=== PATIENT | female | born 1995 | race Caucasian/White ===

== ENCOUNTER 2020-08-14 13:46 | Observation (INO) | payer OTHER, SELFPAY ==
--- NOTE | ~2020-08-14 | US_ITS ---
EXAMINATION: US OB limited DATE: 08/14/2020 14:43 INDICATION: Vaginal bleeding. Estimated gestational age of 17 weeks and 6 days. TECHNIQUE: Real-time ultrasound of the pelvis was performed. COMPARISON: None. FINDINGS: There is a single fetus in transverse lie. The placenta is fundal. heart rate is 150 beats per minute (bpm). The amniotic fluid volume is subjectively normal. IMPRESSION: 1. Single living fetus in transverse lie. Reviewed, dictated and finalized at location A. T SORTER
--- NOTE | 2020-08-14 13:46 | PC.NURSE ---
Alison Jimenez CNM on unit when pt arrived and would like us to take this 17 wk gestation with vaginal spotting.
--- NOTE | 2020-08-14 14:06 | PC.NURSE ---
Sterile speculum exam by Alison Jimenez CNM. Small amount dark brown discharge noted. SVE closed and long.
--- NOTE | 2020-08-14 14:11 | PM.IMHP ---
H&P: HPI History of Present Illness Date/Time: 08/14/20 14:11 Chief complaint: bleeding Narrative: Joyce Jiménez is a 25 year old female, at 17 weeks gestation. Pt presents to LD after having an episode of bleeding at work, heavier than spotting, not flowing like a cycle, no cramping. no complications, Review of Systems Review of Systems: All systems reviewed & are unremarkable except as noted in HPI and below Meds Home Medications and Allergies Allergies Allergy/AdvReac Type Severity Reaction Status Date / Time No Known Allergies Allergy Unverified 05/01/16 13:36 Exam Const: General: cooperative Limitations: no limitations Resp: Effort & Inspection: normal respiratory effort GI: Inspection: normal to inspection : External Female Exam: normal external appearance Speculum Exam - Vagina: abnormal vaginal discharge (small brown discharge noted in vault, no active bleeding, SVE closed, long) Speculum Exam - Cervix: normal appearance of the cervix Bimanual exam- vagina & uterus: normal bimanual exam Skin: General skin exam: normal color Neuro: General: oriented to person Speech: normal speech Gait exam (Neuro): Normal gait present Assessment and Plan Additional Plan 1. 17 weeks gestation 2. vaginal bleeding, not active 3. plan viability ultrasound plan to monitor and await ultrasound results
[2020-08-14 14:14] VITALS: BP 110/58; PULSE 83
[2020-08-14 14:25] VITALS: BP 102/62; PULSE 93; RESP 16; TEMP 36.7; BMI 18.5
--- NOTE | 2020-08-14 14:25 | OBADM ---
This patient, Joyce Jiménez, admitted to the OB room OB Post 115 for observation. Patient/family oriented to hospital policies and general routines including ID bracelet, bed and alarms, visiting hours, pain management, procedures, bathroom and other care routines, personal items, smoking policy, room service/diet, and visiting hours. Patient/Family are encouraged to report perceived risks to care and to ask questions if they do not understand what they are told or what they should do.
--- NOTE | 2020-08-14 14:28 | PC.NURSE ---
To U/S per wheelchair.
--- NOTE | 2020-08-14 15:35 | PC.NURSE ---
Alison Jimenez CNM aware of U/S report and order written for discharge.
== END 2020-08-14 16:34 | disposition home or self-care (01) ==
PROVIDERS: Admitting Provider Obstetrics & Gynecology; PCP Internal Medicine; Visit Provider Obstetrics & Gynecology
DX: O46.92 Antepartum hemorrhage, unspecified, second trimester (principal); Z3A.17 17 weeks gestation of pregnancy
CPT/HCPCS: 76815; G0378; G0379

== ENCOUNTER 2020-09-14 17:19 | Outpatient (CLI) | payer OTHER, SELFPAY ==
--- NOTE | ~2020-09-14 | US_ITS ---
US OB limited DATE: 09/14/2020 17:50 INDICATION: Vaginal spotting today TECHNIQUE: Real-time imaging and Doppler analysis COMPARISON: None FINDINGS: Live marcus intrauterine gestation, fetus in transverse lie the head to maternal r ight. movement is visualized. heart rate of 142 bpm. The placenta is posterior, lower margin 4.8 cm above the internal os. The cervix measures approximate ly 4.5 cm height. No abnormal retroplacental hemorrhage is evident. Normal amount of amniotic fluid by subjective assessment. IMPRESSION: No significant abnormality demonstrated Reviewed, dictated and finalized at Location A. Reviewed, dictated and finalized at location A. NCILIATION ACCOUNTANT
== END 2020-09-14 17:20 | disposition home or self-care (01) ==
LOC: ANHIMG 17:23
PROVIDERS: PCP Internal Medicine; Visit Provider Obstetrics & Gynecology
DX: O26.859 Spotting complicating pregnancy, unspecified trimester (principal); Z3A.00 Weeks of gestation of pregnancy not specified
CPT/HCPCS: 76815

== ENCOUNTER 2020-10-27 11:28 | Outpatient (CLI) | payer OTHER, SELFPAY ==
[2020-10-27 13:05] LABS: Hematocrit 36.3 % (37.0-47.0); Hemoglobin 12.2 g/dL (12.0-15.0)
[2020-10-27 13:19] LABS: Glucose 1 Hour PP 50gm Dose 96 mg/dL
[2020-10-27 13:56] LABS: HIV 1/2 Ab P24 Ag Result Negative (Negative)
[2020-10-28 07:27] LABS: Rapid Plasma Reagin Non-Reactive (NonReactive)
== END 2020-10-27 11:29 | disposition home or self-care (01) ==
PROVIDERS: PCP Internal Medicine; Visit Provider Obstetrics & Gynecology
DX: Z36.89 Encounter for other specified antenatal screening (principal); Z77.011 Contact with and (suspected) exposure to lead; Z3A.00 Weeks of gestation of pregnancy not specified
CPT/HCPCS: 36415; 82947; 85014; 85018; 86592; 86703; G0432

== ENCOUNTER 2021-01-11 06:20 | Inpatient (IN) | payer OTHER, SELFPAY ==
[2021-01-11] VITALS (81 sets, daily range): BP systolic 81–126; BP diastolic 51–90; PULSE 72–114; RESP 16–17; TEMP 36.8–37.6; O2SAT 92–100; BMI 23.4
--- OUTSIDE RECORDS SUMMARY | 2021-01-11 06:27 | XMS_ITS | Encounter Summary ---
:1995 Author Care Team Providers Name Role Phone Dino Cerda MD Primary Care Provider [phone] Reason for Visit None recorded. Assessment and Plan 1. Small for gestational age fet us ? non-stress test Discussion Note: None recorded.Patient educational handouts: No information available. Plan of Care Reminders Provider Appointments Nst 01/14/2021 Nst, , EQ UIP 10:30AM Lab None ? ? recorded. Referral None ? ? recorded. Procedures None ? ? recorded. Surgeries None ? ? recorded. Imaging 12/14/2020 [place] Non-stress Test Medications Name Start Date ? ? ? Medications Administered None recorded. Vitals None recorded. Results Lab Results None recorded. Allergies Code Code System Name Reaction Severity Onset NKDA ? ? ? Problems Name Status Onset Date Source ? Active 09/23/2020 ? Procedures Date Name Performed by ? 11/30/2020 US, Obstetric, Follow-up [place]
--- OUTSIDE RECORDS SUMMARY | 2021-01-11 06:27 | XMS_ITS ---
:1995 Author Care Team Providers Name Role Phone Dino Cerda Primary Care Provider Unavailable Allergies Code Code System Name Reaction Severity Status Onset NKDA ? Medications Name Status Start Date Stop Date ? ? amoxicillin 500 mg capsule Completed ? 01/10 TAKE ONE CAPSULE BY MOUTH 3 TIMES A DAY amoxicillin 875 mg tablet Completed ? 2018 TAKE 1 TABLET BY MOUTH EVERY 12 HOURS doxycycline hyclate 100 mg capsule Completed ? 01/10/2019 TAKE 1 CAPSULE BY MOUTH EVERY DAY doxycycline hyclate 100 mg tablet Completed ? 01/10/2019 TAKE 1 TABLET BY MOUTH DAILY medroxyprogesterone 150 mg/mL Completed 11/19/2017 intramuscular suspension phentermine Completed ? 11/19/2017 QD spironolactone 100 mg tablet Completed ? TAKE 1 TABLET BY MOUTH EVERY DAY WITH MEALS Problems None recorded. Procedures Notes: None reported Results Lab Results Date Name Specimen Result Interpretation Description Value Range Status Address ? 04/12/2020 SARS CoV 2 RNA ? Sars report ? 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
--- OUTSIDE RECORDS SUMMARY | 2021-01-11 06:27 | XMS_ITS | Encounter Summary ---
:1995 Author Care Team Providers Name Role Phone Dino Cerda MD Primary Care Provider [phone] Reason for Visit None recorded. Assessment and Plan 1. Poor growth affecting m anagement ? US, obstetric, biophysical profile + non-stress test ? US, obstetric, follow-up ? US, doppler, umbilic al artery velocimetry Discussion Note: None recorded.Patient educational handouts: No information available. Plan of Care Reminders Provider Appointments Nst Nst, , EQ UIP 01/14/2021 10:30AM Lab None recorded. ? ? Referral None recorded. ? ? Procedures None recorded. ? ? Surgeries None recorded. ? ? Imaging US, Obstetric, Ora cardoso Biophysical Profile + 01/04/2021 Non-stress Test ? US, Obstetric, Ora cardoso Follow-up 01/04/2021 ? US, DopplerLeanna Umbilical Artery 01/04/2021 Velocimetry Medications Name Start Date ? ? ? Medications Administered None recorded. Vitals None recorded. Results
--- OUTSIDE RECORDS SUMMARY | 2021-01-11 06:27 | XMS_ITS ---
:1995 Author Care Team Providers Name Role Phone PEARL MARCANO MD Primary Care Provider [phone] Allergies Code Code System Name Reaction Severity Status Onset NKDA ? Medications Name Status Start Date Stop Date ? ? amoxicillin 500 mg tablet Completed ? 2019 TAKE 1 TABLET BY MOUTH THREE TIMES A DAY UNTIL FINISHED glxfygtwcy-elakqhmtwojdo-ryaitvyz 50 mg-300 mg-40 mg capsule Com pleted ? 09/23/2020 TAKE 1 CAPSULE BY MOUTH EVERY 4 HOURS clindamycin HCl 300 mg capsule Completed ? 0 09/23/2020 TAKE 1 CAPSULE BY MOUTH EVERY 12 HOURS Depo-Provera 150 mg/mL intramuscular syringe Completed 08/201605/15/2017 inject 1 milliliter by intramuscular route every 3 months docusate sodium 100 mg capsule Completed ? 0 12/21/2020 TAKE 1 CAPSULE BY MOUTH TWICE A DAY FOR CONSTIPATION doxycycline hyclate 50 mg capsule Completed 09/23/2018 12/24/2018 take 1 capsule by oral route every 12 hours Diflucan 150 mg tablet Active 12/10/2019 Not avail able take 1 tablet by oral route once Keflex 500 mg capsule Completed 02/05/2019 03/14/2019 take 1 capsule by oral route every 12 hours metronidazole 0.75 % vaginal gel Completed 03/25/2019 12/10/2019 insert 1 applicatorful by vaginal route every day at bedtime Macrobid 100 mg capsule Active 12/10/2019 Not avai lable take 1 capsule by oral route every 12 hours with food Active ? Not available spironolactone (bulk) 100% Completed 09/23/201812/24 powder tramadol 50 mg tablet Comple
--- OUTSIDE RECORDS SUMMARY | 2021-01-11 06:27 | XMS_ITS | Encounter Summary ---
:1995 Author Care Team Providers Name Role Phone Dino Cerda MD Primary Care Provider [phone] Reason for Visit OB visit 36w2d Assessment and Plan 1. Routine care Discussion Note: None recorded.Patient educational handouts: No information available. Plan of Care Reminders Provider Appointments Nst 01/14/2021 Nst, , EQ UIP 10:30AM Lab None ? ? recorded. Referral None ? ? recorded. Procedures None ? ? recorded. Surgeries None ? ? recorded. Imaging None ? ? recorded. Medications Name Start Date ? ? ? Medications Administered None recorded. Vitals Height Weight BMI Blood Pressure 5 ft 6.25 in 144 lbs 23.1 kg/m2 103/70 mm[Hg] Results Lab Results None recorded. Allergies Code Code System Name Reaction Severity Onset NKDA ? ? ? Problems Name Status Onset Date Source ? Active 09/23/2020 ? Procedures Date Name Performed by ? 11/30/2020 US, Obstetric, Follow
--- OUTSIDE RECORDS SUMMARY | 2021-01-11 06:27 | XMS_ITS | Encounter Summary ---
:1995 Author Care Team Providers Name Role Phone Dino Cerda MD Primary Care Provider [phone] Reason for Visit None recorded. Assessment and Plan 1. growth restriction ? non-stress test Discussion Note: None recorded.Patient educational handouts: No information available. Plan of Care Reminders Provider Appointments Nst 01/14/2021 Nst, , EQ UIP 10:30AM Lab None ? ? recorded. Referral None ? ? recorded. Procedures None ? ? recorded. Surgeries None ? ? recorded. Imaging 01/07/2021 [place] Non-stress Test Medications Name Start Date ? ? ? Medications Administered None recorded. Vitals None recorded. Results Lab Results None recorded. Allergies Code Code System Name Reaction Severity Onset NKDA ? ? ? Problems Name Status Onset Date Source ? Active 09/23/2020 ? Procedures Date Name Performed by ? 12/10/2020 Non-stress Test [place]
--- OUTSIDE RECORDS SUMMARY | 2021-01-11 06:27 | XMS_ITS | Encounter Summary ---
:1995 Author Care Team Providers Name Role Phone Dino Cerda MD Primary Care Provider [phone] Reason for Visit None recorded. Assessment and Plan 1. Poor growth affecting m anagement ? US, obstetric, biophysical profile + non-stress test ? US, doppler, umbilic al artery velocimetry Discussion Note: None recorded.Patient educational handouts: No information available. Plan of Care Reminders Provider Appointments Nst Nst, , EQ UIP 01/14/2021 10:30AM Lab None recorded. ? ? Referral None recorded. ? ? Procedures None recorded. ? ? Surgeries None recorded. ? ? Imaging US, Obstetric, Ora cardoso Biophysical Profile + 12/28/2020 Non-stress Test ? US, Doppler, Leanna martinez Umbilical Artery 12/28/2020 Velocimetry Medications Name Start Date ? ? ? Medications Administered None recorded. Vitals None recorded. Results Lab Results None recorded. Allergies Code Code System Name Reaction Severity Onset NKDA
--- OUTSIDE RECORDS SUMMARY | 2021-01-11 06:27 | XMS_ITS | Encounter Summary ---
:1995 Author Care Team Providers Name Role Phone Dino Cerda MD Primary Care Provider [phone] Reason for Visit None recorded. Assessment and Plan 1. growth restriction ? non-stress test Discussion Note: None recorded.Patient educational handouts: No information available. Plan of Care Reminders Provider Appointments Nst 01/14/2021 Nst, , EQ UIP 10:30AM Lab None ? ? recorded. Referral None ? ? recorded. Procedures None ? ? recorded. Surgeries None ? ? recorded. Imaging 12/28/2020 [place] Non-stress Test Medications Name Start Date ? ? ? Medications Administered None recorded. Vitals None recorded. Results Lab Results None recorded. Allergies Code Code System Name Reaction Severity Onset NKDA ? ? ? Problems Name Status Onset Date Source ? Active 09/23/2020 ? Procedures Date Name Performed by ? 11/30/2020 US, Obstetric, Follow-up [place]
--- OUTSIDE RECORDS SUMMARY | 2021-01-11 06:27 | XMS_ITS | Encounter Summary ---
:1995 Author Care Team Providers Name Role Phone Dino Cerda MD Primary Care Provider [phone] Reason for Visit None recorded. Assessment and Plan 1. growth restriction ? non-stress test Discussion Note: None recorded.Patient educational handouts: No information available. Plan of Care Reminders Provider Appointments Nst 01/14/2021 Nst, , EQ UIP 10:30AM Lab None ? ? recorded. Referral None ? ? recorded. Procedures None ? ? recorded. Surgeries None ? ? recorded. Imaging 12/21/2020 [place] Non-stress Test Medications Name Start Date ? ? ? Medications Administered None recorded. Vitals None recorded. Results Lab Results None recorded. Allergies Code Code System Name Reaction Severity Onset NKDA ? ? ? Problems Name Status Onset Date Source ? Active 09/23/2020 ? Procedures Date Name Performed by ? 11/30/2020 US, Obstetric, Follow-up [place]
--- OUTSIDE RECORDS SUMMARY | 2021-01-11 06:27 | XMS_ITS | Encounter Summary ---
:1995 Author Care Team Providers Name Role Phone Dino Cerda MD Primary Care Provider [phone] Reason for Visit None recorded. Assessment and Plan 1. growth restriction ? non-stress test Discussion Note: None recorded.Patient educational handouts: No information available. Plan of Care Reminders Provider Appointments Nst 01/14/2021 Nst, , EQ UIP 10:30AM Lab None ? ? recorded. Referral None ? ? recorded. Procedures None ? ? recorded. Surgeries None ? ? recorded. Imaging 12/24/2020 [place] Non-stress Test Medications Name Start Date ? ? ? Medications Administered None recorded. Vitals None recorded. Results Lab Results None recorded. Allergies Code Code System Name Reaction Severity Onset NKDA ? ? ? Problems Name Status Onset Date Source ? Active 09/23/2020 ? Procedures Date Name Performed by ? 11/30/2020 US, Obstetric, Follow-up [place]
--- OUTSIDE RECORDS SUMMARY | 2021-01-11 06:27 | XMS_ITS | Encounter Summary ---
:1995 Author Care Team Providers Name Role Phone Dino Cerda MD Primary Care Provider [phone] Reason for Visit None recorded. Assessment and Plan 1. growth restriction ? non-stress test Discussion Note: None recorded.Patient educational handouts: No information available. Plan of Care Reminders Provider Appointments Nst 01/14/2021 Nst, , EQ UIP 10:30AM Lab None ? ? recorded. Referral None ? ? recorded. Procedures None ? ? recorded. Surgeries None ? ? recorded. Imaging 12/31/2020 [place] Non-stress Test Medications Name Start Date ? ? ? Medications Administered None recorded. Vitals None recorded. Results Lab Results None recorded. Allergies Code Code System Name Reaction Severity Onset NKDA ? ? ? Problems Name Status Onset Date Source ? Active 09/23/2020 ? Procedures Date Name Performed by ? 11/30/2020 US, Obstetric, Follow-up [place]
--- OUTSIDE RECORDS SUMMARY | 2021-01-11 06:27 | XMS_ITS | Encounter Summary ---
:1995 Author Care Team Providers Name Role Phone Dino Cerda MD Primary Care Provider [phone] Reason for Visit None recorded. Assessment and Plan 1. growth restriction ? non-stress test Discussion Note: None recorded.Patient educational handouts: No information available. Plan of Care Reminders Provider Appointments Nst 01/14/2021 Nst, , EQ UIP 10:30AM Lab None ? ? recorded. Referral None ? ? recorded. Procedures None ? ? recorded. Surgeries None ? ? recorded. Imaging 01/04/2021 [place] Non-stress Test Medications Name Start Date ? ? ? Medications Administered None recorded. Vitals None recorded. Results Lab Results None recorded. Allergies Code Code System Name Reaction Severity Onset NKDA ? ? ? Problems Name Status Onset Date Source ? Active 09/23/2020 ? Procedures Date Name Performed by ? 12/10/2020 Non-stress Test [place]
--- OUTSIDE RECORDS SUMMARY | 2021-01-11 06:27 | XMS_ITS | Encounter Summary ---
:1995 Author Care Team Providers Name Role Phone Dino Cerda MD Primary Care Provider [phone] Reason for Visit OB visit Assessment and Plan Assessment Note Patient is ___weeks . Discu ssed plan. 1. growth restriction ? US, obstetric, follow-up Discussion Note: None recorded.Patient educational handouts: No information available. Plan of Care Reminders Provider Appointments Nst 01/14/2021 Nst, , EQ UIP 10:30AM Lab None ? ? recorded. Referral None ? ? recorded. Procedures None ? ? recorded. Surgeries None ? ? recorded. Imaging US, 12/28/2020 [place] Obstetric, Follow-up Medications Name Start Date ? ? ? Medications Administered None recorded. Vitals Height Weight BMI Blood Pressure 5 ft 6.25 in 146 lbs 23.4 kg/m2 124/71 mm[Hg] Results Lab Results None recorded. Allergies Code Code System Name Reaction Severity Onset NKDA ? ? ? Problems Name Status Onset Date Source ?
--- OUTSIDE RECORDS SUMMARY | 2021-01-11 06:27 | XMS_ITS | Encounter Summary ---
:1995 Author Care Team Providers Name Role Phone Dino Cerda MD Primary Care Provider [phone] Reason for Visit None recorded. Assessment and Plan 1. Small for gestational age fet us ? US, obstetric, biophysical profile + non-stress [...] US, Obstetric, Ora cardoso Biophysical Profile + 12/21/2020 Non-stress Test ? US, Doppler, Leanna martinez Umbilical Artery 12/21/2020 [facility] Medications Name Start Date ? ? ? Medications Administered None recorded. Vitals None recorded. Results Lab Results None recorded. Allergies Code Code System Name Reaction Severity Onset NKDA ?
--- OUTSIDE RECORDS SUMMARY | 2021-01-11 06:27 | XMS_ITS | Encounter Summary ---
:1995 Author Care Team Providers Name Role Phone Dino Cerda MD Primary Care Provider [phone] Reason for Visit OB visit 38w2d Assessment and Plan 1. Routine care Discussion [...] BMI Blood Pressure 5 ft 6.25 in 150 lbs 24 kg/m2 122/77 mm[Hg] Results Lab Results None recorded. Allergies Code Code System Name Reaction Severity Onset NKDA ? ? ? Problems Name Status Onset Date Source ? Active 09/23/2020 ? Procedures Date Name Performed by ? 12/10/2020 Non-stress Test
--- OUTSIDE RECORDS SUMMARY | 2021-01-11 06:28 | XMS_ITS | Encounter Summary ---
:1995 Author Care Team Providers Name Role Phone Dino Cerda MD Primary Care Provider [phone] Reason for Visit None recorded. Assessment and [...] US, Obstetric, Ora cardoso Biophysical Profile + 12/14/2020 Non-stress Test ? US, Doppler, Leanna martinez Umbilical Artery 12/14/2020 [facility] Medications Name Start Date ? ? ? Medications Administered None recorded. Vitals None recorded. Results Lab Results None recorded. Allergies Code Code System Name Reaction Severity Onset NKDA
--- OUTSIDE RECORDS SUMMARY | 2021-01-11 06:28 | XMS_ITS | Encounter Summary ---
:1995 Author Care Team Providers Name Role Phone Dino Cerda MD Primary Care Provider [phone] Reason for Visit OB visit OB [id number] EDC 01/16/2021 LMP 03/14/2020 Assessment and Plan Assessment Note Patient is 28___weeks . Dis cussed plan. Additional precautionary measures were taken to minimize potentia l exposure to the Covid-19 virus during this patient?s visit, including available fritz d speech language pathologist upon arrive, temperature check and being asked a series of screening qu estions. All staff wore face coverings during this encounter, as well as provided priscila tional cleaning and sanitizing of all surfaces, including countertops, pens, c hairs, door handles, light switches, etc, prior to and following the patient?s vis it. 1. Routine care Discussion Note: None recorded.Patient educational handouts: No information available. Plan of Care Reminders Provider Appointments Nst 01/14/2021 [place], [place] UIP 10:30AM Lab None ? ? recorded. Referral None ? ? recorded. Procedures None ? ? recorded. Surgeries None ? ? recorded. Imaging None ? ? recorded. Medications Name Start Date ? ? ? Medications Administered None recorded. Vitals Height Weight BMI Blood Pressure
--- OUTSIDE RECORDS SUMMARY | 2021-01-11 06:28 | XMS_ITS | Encounter Summary ---
:1995 Author Care Team Providers Name Role Phone Dino Cerda MD Primary Care Provider [phone] Reason for Visit None recorded. Assessment and Plan 1. growth restriction ? non-stress test Discussion Note: None recorded.Patient educational handouts: No information available. Plan of Care Reminders Provider Appointments Nst 01/14/2021 Nst, , EQ UIP 10:30AM Lab None ? ? recorded. Referral None ? ? recorded. Procedures None ? ? recorded. Surgeries None ? ? recorded. Imaging 12/10/2020 [place] Non-stress Test Medications Name Start Date ? ? ? Medications Administered None recorded. Vitals None recorded. Results Lab Results None recorded. Allergies Code Code System Name Reaction Severity Onset NKDA ? ? ? Problems Name Status Onset Date Source ? Active 09/23/2020 ? Procedures Date Name Performed by ? 11/30/2020 US, Obstetric, Follow-up [place]
--- OUTSIDE RECORDS SUMMARY | 2021-01-11 06:28 | XMS_ITS | Encounter Summary ---
:1995 Author Care Team Providers Name Role Phone Dino Cerda MD Primary Care Provider [phone] Reason for Visit OB visit OB [id number] EDC 01/16/2021 LMP 03/14/2020 Assessment and Plan Assessment Note Patient is _34__weeks . Dis cussed plan. 1. Routine care Discussion Note: None recorded.Patient [...] BMI Blood Pressure 5 ft 6.25 in 142 lbs 22.7 kg/m2 110/73 mm[Hg] Results Lab Results None recorded. Allergies Code Code System Name Reaction Severity Onset NKDA ? ? ? Problems Name Status Onset Date Source ? Active 09/23/2020 ? Procedures
--- OUTSIDE RECORDS SUMMARY | 2021-01-11 06:28 | XMS_ITS | Encounter Summary ---
:1995 Author Care Team Providers Name Role Phone Dino Cerda MD Primary Care Provider [phone] Reason for Visit OB visit OB [id number] EDC 01/16/2021 LMP 03/14/2020 Assessment and Plan Assessment Note Patient is _26__weeks . Dis cussed plan. 1. Routine care [...] BMI Blood Pressure 5 ft 6.25 in 132 lbs 21.1 kg/m2 105/70 mm[Hg] Results Lab Results None recorded. Allergies Code Code System Name Reaction Severity Onset NKDA ? ? ? Problems Name Status Onset Date Source ? Active 09/23/2020 ? Procedures
--- OUTSIDE RECORDS SUMMARY | 2021-01-11 06:28 | XMS_ITS | Encounter Summary ---
:1995 Author Care Team Providers Name Role Phone Dino Cerda MD Primary Care Provider [phone] Reason for Visit OB visit OB [id number] EDC 01/16/2021 LMP 03/14/2020 Assessment and Plan Assessment Note Patient is __30_weeks . Dis cussed plan. Additional precautionary measures were taken to minimize potentia l exposure to the Covid-19 virus during this patient?s visit, including available fritz d hvac/r service technician upon arrive, temperature check and being asked [...]
--- OUTSIDE RECORDS SUMMARY | 2021-01-11 06:28 | XMS_ITS | Encounter Summary ---
:1995 Author Care Team Providers Name Role Phone Dino Cerda MD Primary Care Provider [phone] Reason for Visit None recorded. Assessment and Plan 1. Small for gestational age fet us ? US, obstetric, follow-up ? US, obstetric, biophysical profile + non-stress test ? US, doppler, umbilic al artery velocimetry Discussion Note: None recorded.Patient educational handouts: No information available. Plan of Care Reminders Provider Appointments Nst Nst, , EQ UIP 01/14/2021 10:30AM Lab None recorded. ? ? Referral None recorded. ? ? Procedures None recorded. ? ? Surgeries None recorded. ? ? Imaging US, Obstetric, Ora cardoso Follow-up 11/30/2020 ? US, Obstetric, Ora cardoso Biophysical Profile + 11/30/2020 Non-stress Test ? US, DopplerLeanna Umbilical Artery 11/30/2020 [place] Medications Name Start Date ? ? ? Medications Administered None recorded. Vitals None recorded. Results
--- OUTSIDE RECORDS SUMMARY | 2021-01-11 06:28 | XMS_ITS | Encounter Summary ---
:1995 Author Care Team Providers Name Role Phone Dino Cerda MD Primary Care Provider [phone] Reason for Visit OB visit Assessment and Plan Assessment Note Patient is ___weeks . Discu ssed plan. 1. Routine care Discussion Note: None [...] BMI Blood Pressure 5 ft 6.25 in 139 lbs 22.3 kg/m2 98/65 mm[Hg] Results Lab Results None recorded. Allergies Code Code System Name Reaction Severity Onset NKDA ? ? ? Problems Name Status Onset Date Source ? Active 09/23/2020 ? Procedures Date Name Performed by ?
--- OUTSIDE RECORDS SUMMARY | 2021-01-11 06:28 | XMS_ITS | Encounter Summary ---
:1995 Author Care Team Providers Name Role Phone Dino Cerda MD Primary Care Provider [phone] Reason for Visit None recorded. Assessment and Plan 1. growth restriction ? non-stress test Discussion Note: None recorded.Patient educational handouts: No information available. Plan of Care Reminders Provider Appointments Nst 01/14/2021 Nst, , EQ UIP 10:30AM Lab None ? ? recorded. Referral None ? ? recorded. Procedures None ? ? recorded. Surgeries None ? ? recorded. Imaging 11/30/2020 [place] Non-stress Test Medications Name Start Date ? ? ? Medications Administered None recorded. Vitals None recorded. Results Lab Results None recorded. Allergies Code Code System Name Reaction Severity Onset NKDA ? ? ? Problems Name Status Onset Date Source ? Active 09/23/2020 ? Procedures Date Name Performed by ? 11/11/2020 US, Obstetric Anjum Farias
--- OUTSIDE RECORDS SUMMARY | 2021-01-11 06:28 | XMS_ITS | Encounter Summary ---
:1995 Author Care Team Providers Name Role Phone Dino Cerda MD Primary Care Provider [phone] Reason for Visit OB visit 35w2d Assessment and Plan 1. Routine care Discussion [...] BMI Blood Pressure 5 ft 6.25 in 141 lbs 22.6 kg/m2 103/69 mm[Hg] Results Lab Results None recorded. Allergies Code Code System Name Reaction Severity Onset NKDA ? ? ? Problems Name Status Onset Date Source ? Active 09/23/2020 ? Procedures Date Name Performed by ? 11/30/2020 US, Obstetric, Jodi
[2021-01-11 07:01] LABS: Basophils Percent Auto 0.2 % (0.2-1.2); Eosinophils Absolute Auto 0.2 K/mm3 (0-0.3); Eosinophils Percent Auto 1.8 % (0-4.4); Hematocrit 32.7 % (37.0-47.0); Hemoglobin 11.3 g/dL (12.0-15.0); Immature Granulocyte Absolute 0.27 K/mm3 (0.00-0.031); Immature Granulocyte Percent A 2.1 % (0-0.5); Lymphocytes Absolute Auto 1.67 K/mm3 (0.9-3.2); Lymphocytes Percent Auto 13.2 % (18.3-44.2); Mean Corpuscular HGB Conc 34.6 g/dl (32-36); Mean Corpuscular Hemoglobin 31.4 pg (26-34); Mean Corpuscular Volume 90.8 fl (80-100); Mean Platelet Volume 11.8 fl (7.4-10.4); Monocytes Absolute Auto 1.1 K/mm3 (0.1-0.6); Neutrophils Absolute Auto 9.3 K/mm3 (1.3-6.7); Neutrophils Percent Auto 73.7 % (45.5-73.1); Platelet Count Result 201 k/mm3 (150-375); Red Cell Distribution Width 13.9 % (11.5-14.5); White Blood Count 12.6 K/mm3 (4.5-10.0)
[2021-01-11] MEDS: LACTATED RINGERS 1,000 ML 125 ML IV CONT ×3 (07:10→11:02)
[2021-01-11] MEDS: OXYTOCIN 30 UNITS/NS 500 ML 30 UNITS/500 ML BAG IV CONT (07:10)
--- NOTE | 2021-01-11 07:17 | WPDOBADMIT ---
Obstetrics - Admit Note Admission Note: record reviewed. No pertinent additions to the history and/or any subsequent changes in the physical findings that are not consistent with the expected course of the were found. MIL, oligohydramnios, IUGR, bilateral pyelectasis Additions to the history and/or subsequent changes in the physical findings follow. None.
--- NOTE | 2021-01-11 07:18 | LDADM ---
This patient, Joyce Jiménez, was admitted to Labor/Delivery/Recovery 104 on 01/11/21 at 06:20. Plans for labor, pain management and were discussed with patient. Patient/family oriented to hospital policies and general routines including ID bracelet, bed and alarms, visiting hours, pain management, procedures, bathroom and other care routines, personal items, smoking policy, room service/diet and guest tray routines, infant security routines, and visiting hours. Patient/Family are encouraged to report perceived risks to care and to ask questions if they do not understand what they are told or what they should do. See OBIX for further documentation.
[2021-01-11] MEDS: AMPICILLIN 2 GM/NS 100 ML 2 GM/100 ML BAG IVPB (07:47)
--- NOTE | 2021-01-11 09:38 | P.PNAN_ITS ---
Anes - Eval Pre Procedure Procedure: labor epidural Date/Time: 01/11/21 09:38 Surgeon: Jarrett Preop Diagnosis: pain during labor Pre Op Diagnosis: Induction of labor Patient Data Age: 26 Gender: F Height: 5 ft 7.5 in Weight: 69 kg Last Vital Signs Temp 36.9 C 01/11/21 07:15 Pulse 88 01/11/21 09:37 BP 111/68 01/11/21 09:37 Pulse Ox 100 01/11/21 09:35 Allergies Allergy/AdvReac Type Severity Reaction Status Date / Time No Known Allergies Allergy Verified 12/22/20 13:30 Home Medications Medication Instructions Recorded Confirmed Type PNV cmb#95-ferrous fumarate-FA 1 tablet PO DAILY 08/14/20 12/22/20 History [] Laboratory Tests 01/11/21 01/11/21 01/11/21 06:55 06:55 06:55 WBC 12.6 K/mm3 H K/mm3 (4.5-10.0) RBC 3.60 M/mm3 L M/mm3 (4.2-5.4) Hgb 11.3 g/dL L g/dL (12.0-15.0) Hct 32.7 % L % (37.0-47.0) MCV 90.8 fl fl (80-100) MCH 31.4 pg pg (26-34) MCHC 34.6 g/dl g/dl (32-36) RDW 13.9 % % (11.5-14.5) Plt Count 201 k/mm3 k/mm3 (150-375) MPV 11.8 fl H fl (7.4-10.4) Immature Gran % (Auto) 2.1 % H % (0-0.5) Neut % (Auto) 73.7 % H % (45.5-73.1) Lymph % (Auto) 13.2 % L % (18.3-44.2) [place] % (Auto) 9.0 % H % (2.6-8.5) Eos % (Auto) 1.8 % % (0-4.4) Baso % (Auto) 0.2 % % (0.2-1.2) Lymph # (Auto) 1.67 K/mm3 K/mm3 (0.9-3.2) [place] # (Auto) 1.1 K/mm3 H K/mm3 (0.1-0.6) Eos # (Auto) 0.2 K/mm3 K/mm3 (0-0.3) Baso # (Auto) 0.0 K/mm3 K/mm3 (0.0-0.1) Abs Immat Gran (auto) 0.27 K/mm3 H K/mm3 (0.00-0.031) Absolute Neuts (auto) 9.3 K/mm3 H K/mm3 (1.3-6.7) Absolute Nucleated RBC 0.0 K/mm3 K/mm3 (0.0-0.012) Nucleated RBC % 0.0 % % (0.0-0.2) RPR Pending Blood Type O Positive Antibody Screen Negative : gestational age (DINORA 01/16/2021) Patient hx anesthesia problems: none Family hx anesthesia problems: none [facility] Family History Family History Father Acute myocardial infarction Heart disease Hypertension Social History Social History Smoking status: Never smoker Substance use: never Spiritual care concerns: No Exam Day of Procedure 01/11/21 09:38 Patient weight: normal Heart: regular rate and rhythm Lungs: clear to auscultation and normal air movement Neurological: alert and oriented
[2021-01-11 10:35] LABS: Rapid Plasma Reagin Non-Reactive (NonReactive)
[2021-01-11] MEDS: AMPICILLIN 1 GM/NS 50 ML 1 GM/50 ML BAG IVPB (11:51)
--- NOTE | 2021-01-11 13:39 | P.PCNOB_ITS ---
OB - Delivery Note Procedure Delivery date: 01/11/21 Procedure: vaginal delivery events: Oligohydramnios Intrapartal events: None Induction method: AROM and per pitocin protocol Delivery monitor: external FHT and external uterine Route of delivery: Laceration Description: None Specimen: Yes Quantitative Blood Loss (ml): 67 Anesthesia type: Epidural Disposition: other [place] Baby Date of : 01/11/21 Time of : 13:29 Weeks of gestation at delivery: 39 gender: Male Weight (pounds): 6 Weight (ounces): 14 presentation: vertex position: Left Occiput Anterior Placenta delivery description: Spontaneous cord vessel description: 3 Vessels, Clamped/Cut and Delayed Cord Clamping score one minute: 8 score five minutes: 9 Narrative: mother and baby skin to skin and in stable condition
[2021-01-11] MEDS: OXYTOCIN 30 UNITS/NS 500 ML 30 UNITS/500 ML BAG 125 UNITS IV CONT (14:08)
--- NOTE | 2021-01-11 18:58 | OBPPTRN ---
[id number] Patient transferred to post room #282 via W/C. Support person present. Oriented to unit, room, information board, rooming in, admission packet and security measures. Patient verbalizes understanding.
[2021-01-11] MEDS: IBUPROFEN 600 MG TABLET PO (20:09)
[2021-01-12 00:05] VITALS: BP 111/66; PULSE 97; RESP 17; TEMP 36.7; O2SAT 97
[2021-01-12 05:00] VITALS: BP 102/66; PULSE 80; RESP 14; TEMP 36.7; O2SAT 98
[2021-01-12] MEDS: IBUPROFEN 600 MG TABLET PO ×2 (05:10→16:05)
[2021-01-12 06:01] LABS: Hematocrit 30.9 % (37.0-47.0); Hemoglobin 10.4 g/dL (12.0-15.0)
--- NOTE | 2021-01-12 07:23 | PM.OBPNVD ---
OB - PN: Subj Subjective Date/time seen: 01/12/21 07:23 Patient comments: no complaints baby status: doing well OB - PN: Obj Data Labs CBC & Chem 7: 01/12/21 05:05 Labs: Laboratory Results - last 24 hr 01/11/21 01/11/21 01/12/21 06:55 06:55 05:05 Hgb 10.4 L Hct 30.9 L RPR Non-reactive Blood Type O Positive Antibody Screen Negative OB - PN A/P Plan day: 1 Plan: routine care Time Spent With Patient Time: Total time spent is greater than 50% in coordination of care (as documented) at patient's floor/unit and/or counseling patient: Review of Systems Review of Systems: All systems reviewed & are unremarkable except as noted in HPI and below Exam Const: General: cooperative Orientation/consciousness: patient oriented x3 Psych: Affect: normal affect Attitude: cooperative Thought process: Normal thought process present Thought content: Yes Normal thought content present Insight: Good insight present (Psych)
[2021-01-12 08:00] VITALS: BP 100/64; PULSE 91; RESP 14; TEMP 36.3; O2SAT 98
--- NOTE | 2021-01-12 09:16 | WPDANLDPN2 ---
Anes-Prog Note L&D Date/Time: 01/12/21 09:16 Comfortable throughout: labor and delivery Neuraxial method: epidural Epidural/Spinal procedure site: clean & non-tender Neuro status: Neuro function grossly intact. Cardiovascular status: normal Respiratory status: normal Airway patency: baseline Mental status: baseline Post-Op hydration status: normal Vital Signs: Last Vital Signs Temp 36.7 C 01/12/21 05:00 Pulse 80 01/12/21 05:00 Resp 14 01/12/21 05:00 BP 102/66 01/12/21 05:00 Pulse Ox 98 01/12/21 05:00 Pain score (VAS): 0 I/O: Intake & Output 01/11/21 01/12/21 01/12/21 23:59 07:59 15:59 Intake Total 600 Output Total 75 Balance 525 Post-procedural complaints: none Patient feedback: Patient satisfied with anesthetic care.
[2021-01-12] MEDS: MULTIVIT/MIN/PREN/FOL AC/IRON TABLET 1 TAB PO (10:57)
[2021-01-12 12:00] VITALS: BP 100/64; PULSE 77; RESP 14; TEMP 36.4; O2SAT 100
--- NOTE | 2021-01-12 14:54 | PC.NURSE ---
0956 Mother called out for assist with . Mother reports both nipples are very sore, she has been attempting infant to breast each feeding, will latch with a shallow latch causing discomfort with feeding. Mother will then supplement and pump. Mother reports pain with pumping. both nipples are reddened and excoriated. Mother is using shells while not feeding. Reviewed feeding cues, frequencies, duration of feedings, feeding elimination flow sheet, and signs of adequate intake. Demonstrated stimulation techniques to wake infant for feeding. Assisted with infant to breast. Reviewed positioning/alignment in cross cradle, holding breast in U hold and guided asymmetrical latch on. was sleepy and made a few weak attempts to latch in 15 minute attempt. Infant does not thrust tongue forward, tongue does not appear to be tight. Infant does not open wide and keeps bottom lip rolled in and is tight to jaw. A few shallow latches during attempt, infant would have a burst os suckling and pull away. Great difficulties with re-latching. bottle fed and mother pumped after feeding attempt.
--- NOTE | 2021-01-12 15:17 | PC.NURSE ---
1000 Reviewed breast pump care and usage, pumping schedule, nipple care, and collection and storage of breast milk. Mother chooses to use her Medela pump from home. Encouraged [id number], breast massage and manual expression to stimulate supply. Assessed patient for correct flange size 27 mm given, placement and draw. Patient verbalizes and demonstrates understanding of instructions.
--- NOTE | 2021-01-12 15:22 | PC.NURSE ---
[id number] Mother called out for assist with . Infant sleepy and not showing feeding cues. Demonstrated stimulation techniques to wake infant for feeding. Several minutes to waken infant. Feeding cues noted. Assisted with infant to breast. Reviewed positioning/alignment in cross cradle, holding breast in U hold and guided asymmetrical latch on. Once to breast falling asleep. was sleepy and made a few weak attempts to latch in 10 minute attempt. pulls head to right, suggested to attempt in football position. Reviewed positioning/alignment in football, holding breast in C hold and guided asymmetrical latch on. Infant was able to latch correctly. nursed eagerly, with steady draws and occasional swallowing noted for a burst of 2-3 minutes. began to slow and stopped with suckling, and releasing latch. Several attempts made to wake and return to breast. Infant made a few weak attempts. supplemented after. Suggested mother continue to attempt to breast each feeding, watching for nipple tenderness/discomfort.
[2021-01-12] MEDS: ACETAMINOPHEN 325 MG TABLET 650 MG PO (19:22)
[2021-01-12 20:50] VITALS: BP 105/74; PULSE 79; RESP 15; TEMP 36.6; O2SAT 98
[2021-01-13] MEDS: IBUPROFEN 600 MG TABLET PO (05:02)
[2021-01-13 07:55] VITALS: BP 111/73; PULSE 80; RESP 18; TEMP 36.8; O2SAT 100
--- NOTE | 2021-01-13 08:04 | PM.OBPNVD ---
OB - PN: Subj Subjective Date/time seen: 01/13/21 08:04 Patient comments: no complaints baby status: doing well OB - PN: Obj Data Labs CBC & Chem 7: 01/12/21 05:05 OB - PN A/P Plan day: 2 Plan: routine care and discharge home (F/U in 4 weeks) Time Spent With Patient Time: Total time spent is greater than 50% in coordination of care (as documented) at patient's floor/unit and/or counseling patient: Time with patient: less than 15 minutes Review of Systems Review of Systems: All systems reviewed & are unremarkable except as noted in HPI and below Exam Narrative: Exam Narrative: Fundus firm and vaginal flow controlled. No lower ext redness, warmth, or edema. Negative homans. Const: General: comfortable Chest: Breast/axilla inspection: normal inspection of the breasts Resp: Effort & Inspection: normal respiratory effort Cardio: Rate: regular rate GI: GI Palp: Yes Soft to palpation Psych: Appearance: grossly normal Affect: normal affect Attitude: cooperative Thought content: Yes Normal thought content present Judgement: Good judgement present (Psych)
--- NOTE | 2021-01-13 08:06 | P.DS_ITS ---
DS: Admitting Diagnosis Admitting Diagnosis Admitting Diagnosis: Labor OB - DS: Summary OB Procedures : None OB Procedures Intrapartum: Spontaneous Vag Delivery OB Procedures: : None Time Spent with Patient Time attestation: Total time spent providing and/or coordinating discharge services: DS: Data Data Completed and Pending Pending studies at discharge: Pending at discharge 01/11/21 13:33 Surgical [PTH] Routine Discharge Plan Discharge Attending physician on discharge: Elen Jimenez Discharging Clinician: Ai Diop Patient Disposition: Home, Self-Care Activity: pelvic rest Diet: as tolerated Patient Instructions: Antibiotic Form Stand Alone Forms: General Discharge Information Follow-up/Referrals: Elen Jimenez, JUAN PABLOM [Certified Nurse Manager Assurance] - Discharge Medications: Continued PNV cmb#95-ferrous fumarate-FA [] 28 mg iron- 800 mcg Tablet 1 tablet PO DAILY RF: 0 Date of admission: 01/11/21 06:20 Primary Care Provider: Zaida,Dino Kim Admitting Provider: Sofia Farias Attending physician on admission: Sofia Farias Condition: Stable
--- NOTE | 2021-01-13 08:06 | PM.OBPNVD ---
OB - PN: Subj Subjective Date/time seen: 01/13/21 08:06 History of pp depression. Completely denies any symptoms this time. Precautions given. OB - PN: Obj Data Labs CBC & Chem 7: 01/12/21 05:05 OB - PN A/P Time Spent With Patient Time: Total time spent is greater than 50% in coordination of care (as documented) at patient's floor/unit and/or counseling patient:
[2021-01-13 09:30] VITALS: PULSE 80; RESP 18; O2SAT 100
[2021-01-13] MEDS: DOCUSATE SODIUM 100 MG CAPSULE PO (10:13)
[2021-01-13] MEDS: MULTIVIT/MIN/PREN/FOL AC/IRON TABLET 1 TAB PO (10:13)
[2021-01-13] MEDS: ACETAMINOPHEN 325 MG TABLET 650 MG PO (10:13)
--- NOTE | 2021-01-13 12:48 | PC.NURSE ---
0930 Mother is able to independently latch with appropriate positioning/alignment. She continues to report nipple discomfort with feedings. Mother will attempt for 5-10 minutes then supplement and pump, offering EBM/formula of 25mls each feeding. She is feeding as required and waking to feed if needed. Mother is pumping without difficulties or discomfort using her own pump after each feeding attempt. Discussed to increase supplementation of EBM/formula as desires to satisfaction, for low output or not effectively feeding. Reviewed signs when infant may be ready to decrease or discontinue supplementation. Advised not to discontinue supplement until infant is effectively feeding and a feeding is observed by ICP, follow up RN or LC. Infant is feeding as required with adequate feedings in the past 24 hours, and is currently meeting outcomes for weight, output, jaundice and feeding frequencies. Mother states she feels confident to continue current feeding plan at home. Reviewed transition to breast milk, signs of adequate intake, and engorgement/relief. Instructed to call ICP if intake/output less than required. Reviewed regular medications mother is taking. Information provided per Milena. Reviewed community resources on the [facility] website and in the Mom/Baby guide. Information on outpatient services provided. Mother has no further questions at this time.
[2021-01-14 09:50] VITALS: BP 108/71; PULSE 92; RESP 20; TEMP 37.1; O2SAT 98
== END 2021-01-13 12:55 | disposition home or self-care (01) | DRG 806 ==
LOC: ANHLDR 06:31 → ANHOB2 16:33
PROVIDERS: Advanced Practice Midwife; Admitting Provider Obstetrics & Gynecology; PCP Internal Medicine; Visit Provider Obstetrics & Gynecology
DX: O42.02 Full-term premature rupture of membranes, onset of labor within 24 hours of rupture (principal); O99.354 Diseases of the nervous system complicating childbirth; Z37.0 Single live birth; Z3A.39 39 weeks gestation of pregnancy; O36.5930 Maternal care for other known or suspected poor fetal growth, third trimester, not applicable or unspecified; G43.909 Migraine, unspecified, not intractable, without status migrainosus
CPT/HCPCS: 36415; 85014; 85018; 85025; 86592; 86850; 86900; 86901; 88307; A9270; J0290; J2590; J2795; J7120

== ENCOUNTER 2024-11-08 21:12 | Emergency (ER) | payer SELFPAY ==
--- NOTE | ~2024-11-08 | XR_ITS ---
EXAMINATION: XR chest 2V DATE: 11/09/2024 00:45 INDICATION: Shortness of breath. Upper respiratory infection. TECHNIQUE: Frontal and lateral views of the chest were obtained. COMPARISON: None. FINDINGS: There is no pneumonia, pleural effusion, or pneumothorax. The heart size is normal. IMPRESSION: 1. No acute cardiopulmonary disease. Reviewed, dictated and finalized at location A. RRAL CLERK
--- OUTSIDE RECORDS SUMMARY | 2024-11-08 21:13 | XMS_ITS | Clinical Summary ---
Author Organization [facility] [place] Address [address] [place] [address] Care Team Providers Care Welfare Manager Name Role Phone Dino Cerda MD Primary Care Provider [phone] Source Comments [facility],non-owned Affiliates and Associated Physician Practices is amultiple site organization consisting of ambulatory clinics and hospital sitesin [place], [place], [place] and [place]. This disclosure is being madepursuant to the Care Everywhere program and may not contain all information available regarding this patient. Last updated 18.[facility] Allergies No known active allergies Medications * Be aware that medications may not be up to date on this document. Alwaysverify current medications with the patient. Medication Sig Dispensed Refills Start Date End Date Status Vit-DSS-Fe Fum-FA ( VITAMIN WITH IRON) tabletIndications:Pre gnancy Take 1 tablet by mouth once daily Reasons: Active Active Problems Problem Noted Date Diagnosed Date Migraines Vaginal cyst Resolved Problems Problem Noted Date Diagnosed Date Resolved Date Depression screen - initial 10/14/20 10/14/2020 01/11/2021 Overview (10/14/2020): 10/14/2020 Joyce Jiménez was screened for depression using the [place] Depression Scale (EPDS) at her [facility] initial evaluation on 10/14/2020. Her initial score at baseline was 2. Based off of her score of 2, Joyce does not warrant follow up. Patient will continue to be screened throughout , at intervals no closer than two weeks, for continued surveillance and early identification of depression until delivery. Patient reports mental health history. Diagnoses include depression. abnormality in pregnan cy - Amniotic Band 10/07/2020 01/11/2021 Overview (01/13/2021): Images from the original note were not included. [facility] PATIENT--PLEASE CALL [phone] (ex 2) IF TRIAGED OR ADMITTED Care Provider: Dr. Farias [facility] consultants involved: [facility] [place]- Dr. Pascual Diagnosis: Amniotic Band (10/14 US: The band appears to attach to the cord but does not encircle th cord, nor does the cord appear to project through this band. The cord moves freely in this area as well) Planned surveillance: Initial [facility] 10/14/20. Follow-up at [facility] 10/27/20. Continue routine care with primary OB Released from [facility] 10/14/20 Delivery location: with primary OB at hospital of choice (planning [facility]) Delivery mode: Per usual OB indications Desired Delivery GA: No idication for delivery before 39 weeks at this time follow up: Normal care Disability Counselor: Dr. 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 Care plan based on evaluation and is subject to change based on assessment. See Images or Cardiac under Chart Review for US/ ECHO/ MRI reports. Assessment & Plan (10/27/2020 4:19 PM ASSEMBLY LEAD PERSON): growth has reduced since last assessment, EFW: 10%. AC: 10%. umbilical doppler indices appropriate today. S/p visit with [facility]. Plan 1. Serial growth with umbilical Doppler, repeat again in two weeks given identified growth change today. testing if indicated at that time. 2. Risk of growth restriction, umbilical cord accident and . 3. Instructed on twice daily kick counts, seek prompt obstetrical evaluation with decreased movement. 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 growth and umbilical Doppler indices appropriate today. Currently in liliya-viable gestational window. Plan 1. Referral to [facility] [place] 1. Consideration for resection 2. Serial growth with umbilical Doppler Vaginal bleeding during 10/01/2020 01/11/2021 Overview (10/04/2020): Vaginitis panel: lactobacillus iners detected, treated with clindamycin per record. Blood type: O positive. Assessment & Plan (10/27/2020 3:41 PM ASSEMBLY LEAD PERSON): Cervical length screening completed and reassuring. Reports history of easy bruising. Last episode of spotting two weeks ago. RH positive. Complaints today of intermittent watery discharge, separate from her normal vaginal discharge. Reports occasional, non-patterned cramping. Plan 1. Labs previously requested: CBC, PT, PTT, INR, Fibrinogen, TSH with reflex fT4. Patient reports she went to [facility] and did not have orders, nursing confirmed orders are in [facility]. 2. Sent to L/D at [facility] for evaluation for rupture of membranes. Primary [employer]'s office alerted of patient's symptoms. 3. Reviewed SROM warnings and physiologic discharge of , discussed importance of obstetrical evaluation with symptoms of leakage of fluid. 4. labor warnings reviewed, at risk for PTD and PPROM. Assessment & Plan (10/07/2020 11:41 PM ASSEMBLY LEAD PERSON): Seems to be benefiting from work limitations. Cervical length screening reassuring. Small placental sonolucencies. Reports history of easy bruising. Plan 1. Labs requested: CBC, PT, PTT, INR, Fibrinogen, TSH with reflex fT4 2. Gave new work restriction letter requesting lifting no more than 15 pounds & to continue to take breaks after 4 hours of standing Second 10/01/2020 01/11/2021 Overview (10/04/2020): Dating: LMP not c/w 8w5d us, making DINORA-->01/16/21 Summary from 07/08/20: O+ / Negative antibody screen/ Immune/Rpr-NR/Hbsag-NR/HIV-NR/Hep C -NR Pap: NILM, 05/2020 CT/GC: neg HgA1c- 4.5 (07/08) CBC: WBC: 7.0, H/H/P: 12.6/36.3/262 UDS- Negative Family History Medical History Relation Name Comments Hypertension Father Relation Name Status Comments Father Alive Mother Alive Social History Tobacco Use Types Packs/Day Years Used Date Smoking Tobacco: Never Smokeless Tobacco: Former Alcohol Use Standard Drinks/Week Comments Not Currently 0 (1 standard drink = 0.6 oz pur e alcohol) Sex and Gender Information Value Date Recorded Sex Assigned at Not on file Gender Identity Not on file Sexual Orientation Not on file Last Filed Vital Signs Vital Sign Reading Time Taken Comments Blood Pressure 100/56 12/07/2020 3:09 PM CDT Pulse 80 12/07/2020 3:09 PM CDT Temperature 36.2 C (97.1 F) 11/09/2020 10:44 AM ASSEMBLY LEAD PERSON Respiratory Rate - - Oxygen Saturation - - Inhaled Oxygen Concentration - - Weight 59.9 kg (132 lb) 10/27/2020 1:54 PM ASSEMBLY LEAD PERSON Height 172.7 cm (5' 8 ) 10/06/2020 2:19 PM ASSEMBLY LEAD PERSON Body Mass Index 20.07 10/06/2020 2:19 PM ASSEMBLY LEAD PERSON Plan of Treatment Health Maintenance Due Date Last Done Comments PAP SMEAR 1995 HIV SCREENING 2010 HEPATITIS C SCREENING 01/03/2013 DTAP/TDAP/TD VACCINES (1 - Tdap) 2014 HEPATITIS B VACCINE (1 of 3 - 19+ 3-dose series) 2014 COVID-19 VACCINE ( - 2023-2 5 season) 2024 INFLUENZA VACCINE (#1) 2024 DEPRESSION SCREENING 09/17/2024 ZOSTER VACCINE (1 of 2) 2045 HIB VACCINE Aged Out No longer eligi ble based on patient's age to complete this topic HPV VACCINE Aged Out No longer eligi ble based on patient's age to complete this topic MENINGOCOCCAL (Group B) VACCINE Aged Out No longer eligible based on patient's age to complete this topic MENINGOCOCCAL VACCINE Aged Out No jolynn ananda eligible based on patient's age to complete this topic PNEUMOCOCCAL VACCINE Aged Out No long er eligible based on patient's age to complete this topic Care Teams Welfare Manager Relationship Specialty Start Date End Date Dino Cerda MD [address] [place] [address] PCP - General 03/09/21
--- OUTSIDE RECORDS SUMMARY | 2024-11-08 21:13 | XMS_ITS | Referral Summary ---
Author Organization [facility] [employer] Address [address] [place] [address] Care Team Providers Care Offshoring Manager Name Role Phone Dino Cerda MD Primary Care Provider [phone] Source Comments [facility]brain [employer],non-owned Affiliates and Associated Physician Practices is amultiple site organization consisting of ambulatory clinics and hospital sitesin [place], [place], [place] and [place]. This disclosure is being madepursuant to the Care Everywhere program and may not contain all information available regarding this patient. Last updated 18.[employer] Allergies No known active allergies Medications * [...] Jiménez was screened for depression using the [place] Depression Scale (EPDS) at her [facility] initial evaluation on 10/14/2020. Her initial score [...] from the original note were not included. [facility] PATIENT--PLEASE CALL [phone] (ex 2) IF TRIAGED OR ADMITTED Care Provider: Dr. Farias [facility] consultants involved: [facility]- Dr. Pascual Diagnosis: Amniotic Band (10/14 US: The band appears to attach to the cord but does not encircle th cord, nor does the cord appear to project through this band. The cord moves freely in this area as well) Planned surveillance: Initial [facility] 10/14/20. Follow-up at [place] 10/27/20. Continue routine care with primary OB Released from [facility] 10/14/20 Delivery location: with primary OB at hospital of choice (planning [place]) Delivery mode: Per usual OB indications Desired Delivery GA: No idication for delivery before 39 weeks at this time follow up: Normal care Leather Parts Matcher: Dr. 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 Care plan based on evaluation and is subject to change based on assessment. See Images or Cardiac under Chart Review for US/ ECHO/ MRI reports. Assessment & Plan (10/27/2020 4:19 PM DIRECTOR OF CASEWORK): growth has reduced since last assessment, EFW: 10%. AC: 10%. umbilical doppler indices appropriate today. S/p visit with [facility]. Plan 1. Serial growth with umbilical Doppler, [...] cord Assessment & Plan (10/07/2020 11:43 PM DIRECTOR OF CASEWORK): Risk of growth restriction, umbilical cord accident and . growth and umbilical Doppler indices appropriate today. Currently in liliya-viable gestational window. Plan 1. Referral to [facility] [place] 1. Consideration for resection 2. Serial growth with umbilical Doppler Vaginal bleeding during 10/01/2020 01/11/2021 Overview (10/04/2020): Vaginitis panel: lactobacillus iners detected, treated with clindamycin per record. Blood type: O positive. Assessment & Plan (10/27/2020 3:41 PM DIRECTOR OF CASEWORK): Cervical length screening completed and reassuring. Reports history of easy bruising. Last episode of spotting two weeks ago. RH positive. Complaints today of intermittent watery discharge, separate from her normal vaginal discharge. Reports occasional, non-patterned cramping. Plan 1. Labs previously requested: CBC, PT, PTT, INR, Fibrinogen, TSH with reflex fT4. Patient reports she went to [facility] and did not have orders, nursing confirmed orders are in [facility] 2. Sent to L/D at [facility] for evaluation for rupture of membranes. Primary Local Driver's office alerted of patient's symptoms. 3. Reviewed SROM warnings and physiologic discharge of , discussed importance of obstetrical evaluation with symptoms of leakage of fluid. 4. labor warnings reviewed, at risk for PTD and PPROM. Assessment & Plan (10/07/2020 11:41 PM DIRECTOR OF CASEWORK): Seems to be benefiting from work limitations. [...] CBC: WBC: 7.0, H/H/P: 12.6/36.3/262 UDS- Negative Social History Tobacco Use Types Packs/Day Years [...] 36.2 C (97.1 F) 11/09/2020 10:44 AM DIRECTOR OF CASEWORK Respiratory Rate - - Oxygen Saturation - - Inhaled Oxygen Concentration - - Weight 59.9 kg (132 lb) 10/27/2020 1:54 PM DIRECTOR OF CASEWORK Height 172.7 cm (5' 8 ) 10/06/2020 2:19 PM DIRECTOR OF CASEWORK Body Mass Index 20.07 10/06/2020 2:19 PM DIRECTOR OF CASEWORK Plan of Treatment Not on file Care Teams Offshoring Manager Relationship Specialty [place] [address] [place] [address] [address] [place] [address] PCP - General 03/09/21
[2024-11-08 21:14] VITALS: BP 137/76; PULSE 83; RESP 17; TEMP 36.7; O2SAT 100
--- OUTSIDE RECORDS SUMMARY | 2024-11-08 21:14 | XMS_ITS | Patient Health Summary ---
Author Organization [facility] Address [address] [place] [address] Care Team Providers Care Cloth Piecer Name Role Phone Dino Cerda MD Primary Care Provider [phone] Note from [facility],non-owned Affiliates and Associated Physician Practices is amultiple site organization consisting of ambulatory clinics and hospital sitesin [place], [place], [place] and [place]. This disclosure is being madepursuant to the Care Everywhere program and may not contain all information available regarding this patient. Last updated 18.[facility] [employer] Allergies No known active allergies Medications * Be aware that medications may not be up to date on this document. Alwaysverify current medications with the patient. * Vit-DSS-Fe Fum-FA ( VITAMIN WITH IRON) tablet Take 1 tablet by mouth once daily Reasons: Active Problems Problem Noted Date Diagnosed Date Migraines Vaginal cyst Resolved Problems Problem Noted Date Diagnosed Date Resolved Date Depression screen - initial 10/14/20 10/14/2020 01/11/2021 abnormality in pregnan cy - Amniotic Band 10/07/2020 01/11/2021 Amniotic band in second trim oleg, not applicable or unspecified fetus 10/07/2020 01/12/20 Vaginal bleeding during 10/01/2020 01/11/2021 Second 10/01/2020 01/11/2021 Social History Tobacco Use Types Packs/Day Years [...] 36.2 C (97.1 F) 11/09/2020 10:44 AM MANAGEMENT ACCOUNTANT Respiratory Rate - - Oxygen Saturation - - Inhaled Oxygen Concentration - - Weight 59.9 kg (132 lb) 10/27/2020 1:54 PM MANAGEMENT ACCOUNTANT Height 172.7 cm (5' 8 ) 10/06/2020 2:19 PM MANAGEMENT ACCOUNTANT Body Mass Index 20.07 10/06/2020 2:19 PM MANAGEMENT ACCOUNTANT Procedures * SONOGRAM - COMPLETE(Performed 12/07/2020) Performed for Second trimester bleeding (HCC), Amniotic band in second trimester, not applicable orunspecified fetus (HCC) * SONOGRAM - COMPLETE(Performed 11/09/2020) Performed for Second trimester bleeding (HCC), Amniotic band in second trimester, not applicable orunspecified fetus (HCC) * SONOGRAM - COMPLETE(Performed 10/27/2020) Performed for Second trimester bleeding (HCC), Amniotic band in second trimester, not applicable orunspecified fetus (HCC) * SONOGRAM - COMPLETE(Performed 10/14/2020) Performed for abnormality affecting management of mother, single or unspecified fetus (HCC) * SONOGRAM - COMPLETE(Performed 10/06/2020) Performed for Second trimester bleeding (HCC), Second (HCC) Results * SONOGRAM - COMPLETE (12/07/2020 2:08 PM CDT) Only the most recent of5 resultswithin the time period is included. Anatomical Region Laterality Modality Other 12/07/2020 2:08 PM CDT Narrative 12/07/2020 4:36 PM CDT [facility] PHONE: FAX: Shelly. Name: JOYCE JIMÉNEZ. No: [id number] Study Date: 12/07/2020 2:08pm , Age: 04 1995, 25 Pregnancies: 2, Para 1 Height: 68 in Weight: 112 lb LMP: Unknown GA by Base: 34w2d DINORA: 01/16/2021 GA by US: 34w0d DINORA: 01/18/2021 GA Selected: 34w2d (From [facility]) DINORA: 01/16/2021 Referring MD: Anjum Farias MD Bilingual Branch Manager: Linda Johansen RDMS CPT4: [id number] BMI: 17.03 Hist/Ind: Suspected amniotic band Underweight pregravid BMI MEASUREMENTS & AGE GROWTH EVALUATION Measurement GA Range Srce %for GA Ratios ----- ---- ------- BPD 8.6 cm 34w4d (05b4a-75r7u) Hadl BPD 55% FL/BPD 0.71 (0.71 - 0.87) HC 32.2 cm 36w2d (45t6f-56c2r) Hadl HC 67% FL/AC 0.21 (0.20 - 0.24) AC 29.4 cm 33w3d (95c7p-60j5c) Hadl AC 27% HC/AC 1.09 (0.94 - 1.13) FL 6.1 cm 31w5d (52r8w-15r0s) Hadl FL 1% CI 0.73 (0.70 - 0.86) HL 5.3 cm 30w6d (03y0x-11u3b) Julio C HL <05 GA for sonogram 34w0d (94u9l-16r3d) Weight Estimate: based on (BPD,HC,AC,FL) Avg Weight: 2158 gm (1843-2473gm) Had : 4lbs, 12oz Normal: 2436 gm (1827-3045gm) Had Wt% 19% for 34w2d Heart Rate: 125 bpm Amniotic Fluid Index: 11.1cm (08.0-24.8) Q1: 2.6cm Q2: 3.0cm Q3: 1.8cm Q4: 3.7cm Biophysical Profile: 04/24 Breathin Tone: 2 Movement: 2 AFV: 2 EVAL, PLACENTA Presentation: cephalic Placenta: posterior Heart Rate: 125 bpm Amniotic Fluid Volume: normal DOPPLER Umbilical - Mid Cord S/D 3.33(1.72 - 3.66) PI 1.18 (0.61 - 1.19) Anatomy!Normal!Abnormal!Suboptimal!Prev. Seen!Comments Situs ! x ! ! ! ! Stomach ! x ! ! ! ! Kidneys ! ! x ! ! ! Bladder ! x ! ! ! ! CLINICAL SUMMARY Study Number: 5 The FHR baseline was 120 bpm during today's reactive NST. The FHR variability was moderate and no decelerations more than 10 bpm below the baseline were detected. IMPRESSION: 1) Hutchinson gestation, 34w2d 2) Overall, biometry is consistent with appropriate growth 3) The amniotic fluid volume is within normal limits 4) Umbilical Doppler waveforms reveal no evidence of increased arterial resistance 5) Reassuring biophysical profile 6) There is bilateral urinary tract dilation with calyceal involvement (grade A2-3 UTD) 7) No other abnormalities were detected during today's limited review of the anatomy NOTE: The patient was advised that ultrasound does not allow detection of all structural or chromosomal abnormalities. She was informed of today's ultrasound findings. Follow up for UTD is important secondary to possible ureteral obstruction or reflux that would alter management. RECOMMEND: 1) Continue testing as clinically indicated 2) Follow up ultrasound to reevaluate the kidneys and growth in 3-4 weeks Thank you for allowing us the opportunity to care for your patient. Christy Hutchins MD <Electronic Signature> 12/07/2020 04:35pm R Bob Farias MD [facility] ORDERABLES Care Teams Cloth Piecer Relationship Specialty Start Date End Date Dino Cerda MD [address] [place] [address] PCP - General 03/09/21
--- OUTSIDE RECORDS SUMMARY | 2024-11-08 21:14 | XMS_ITS | Data Portability ---
Author Organization [facility] [place] Address [address] [place] [address] [place] [address] Care Team Providers Care Chief Specialist Leed Name Role Phone PEARL MARCANO Primary Care Provider Assessment No assessment recorded. Plan of Treatment Reminders Order Date Submit Date Provider Last Modified By Organization Details Last Modified Time Details Appointments None recorded. Lab None recorded. Referral None recorded. Procedures None recorded. Surgeries None recorded. Imaging non-stress test [address], [address], [address], [place], [address], 10:41:25 US, obstetric, biophysical profile + non-stress test 2020 021 [facility], [address], [address], [place], [address], 22:13:10 US, obstetric, follow-up 2020 021 [facility], [address], [address], [place], [address], 20:28:44 US, doppler, umbilical artery velocimetry 2020 021 [email or web address] [place], [address], [place], [address], 17:02:43 non-stress test 2020 021 [email or web address] [place], [address], [place], [address], 17:02:43 non-stress test 2020 021 [email or web address] [place], [address], [place], [address], 18:53:49 Medication Orders None recorded. Patient TargetsNo targets recorded. Patient InstructionsNo instructions recorded. Reason for Referral None Reported. Results Created Date Observation Date Name Description Value Unit Range Abnormal Flag Note LastModifiedBy Organization Detail LastModifiedTime 12/01/19 21 11/30/2020 non-s tress test Interpretati on Reacti ve-MKl eduardo wheat RN Not Available [place] [address], [place], [address], 11/30/2020 12:09:58 12/08/19 21 12/07/2020 US, obste tric, follo w-up interpretati on Not Available [facility] [address], [place], [address], 11/30/2020 11:56:03 12/08/19 21 12/07/2020 US, doppl er, umbil ical arter y veloc imetr y interpretati on Not Available [facility] [address], [place], [address], 11/30/2020 11:56:09 12/15/19 21 12/14/2020 strep tococ cus group B, cultu re, unspe cifie d speci men result report SEE RESULT S BELOW Test: Cultu re: Group B Strep Scree n - Vagin al/Re ctal Speci men Sourc e: Vagin a/Rec sally Speci men Type: Vagin al/Re ctal Speci men Date: 2020 1:57 PM Resul t Date: 021 3:09 PM Resul t Statu s: Final resul t Abnor mal: No Resul ting Lab: [facility] [address] [facility] [address] Tel: CULTU RE ----- ----- ----- --- No Group B strep isola digna at 2 days (tristin ctive broth enhan cemen t) Not Available [facility] (Lab) [address], [place], [address], 12/17/2020 16:12:59 12/01/19 US, obste tric, follo w-up No observ ation record ed. aziza [address], [facility], [place], [address], 12/02/2020 10:25:20 12/08/19 21 12/07/2020 US, obste tric, follo w-up No observ ation record ed. [email or web address] [facility] [address] [place], [address], 12/13/2020 12:08:44 12/08/19 21 12/07/2020 US, obste tric, follo w-up No observ ation record ed. [email or web address] [facility] [address] [place], [address], 12/07/2020 21:06:34 12/11/19 21 12/10/2020 non-s tress test No observ ation record ed. [email or web address] [place] [address] [address], [place], [address], 12/10/2020 12:10:03 12/15/19 21 12/20/2020 US, obste tric, bioph ysica l profi le + non-s tress test No observ ation record ed. jame [place] [address], [place], [address], 12/20/2020 17:43:34 12/15/19 21 12/20/2020 US, doppl er, umbil ical arter y veloc imetr y No observ ation record ed. jame [place] [address], [place], [address], 12/20/2020 17:43:50 12/15/19 US, obste tric, bioph ysica l profi le + non-s tress test No observ ation record ed. [email or web address] [address], [place], [address], 12/24/2020 15:12:09 12/15/19 21 12/14/2020 non-s tress test No observ ation record ed. [email or web address] [place] [address], [place], [address], 12/14/2020 13:52:16 12/15/19 21 12/07/2020 US, obste tric, follo w-up No observ ation record ed. [email or web address] [facility] [address] [facility], [place], [address], 12/15/2020 12:56:46 12/15/19 US, obste tric, bioph ysica l profi le + non-s tress test No observ ation record ed. jame [address], [place], [address], 12/14/2020 17:32:01 12/22/19 21 12/28/2020 US, obste tric, bioph ysica l profi le + non-s tress test No observ ation record ed. [email or web address] [place] [address], [place], [address], 12/28/2020 16:06:33 12/22/19 12/28/2020 US, doppl er, umbil ical arter y veloc imetr y No observ ation record ed. [email or web address] [place] [address], [place], [address], 12/28/2020 16:06:22 12/22/19 US, obste tric No observ ation record ed. [address], [place], [address], 12/22/2020 18:44:20 12/22/1912/21/2020 non-s tress test No observ ation record ed. [email or web address], [place], [address], 12/21/2020 12:44:41 12/25/1912/24/2020 non-s tress test No observ ation record ed. [email or web address], [place], [address], 12/24/2020 12:02:00 12/29/1912/28/2020 non-s tress test No observ ation record ed. [email or web address], [place], [address], 12/28/2020 12:05:21 12/29/1901/13/2021 US, obste tric, bioph ysica l profi le + non-s tress test No observ ation record ed. [facility] [address], [place], [address], 01/13/2021 22:12:14 12/29/1901/13/2021 US, doppl er, umbil ical arter y veloc imetr y No observ ation record ed. maribel [place] [address], [place], [address], 01/13/2021 22:30:16 12/29/19 US, obste tric, bioph ysica l profi le + non-s tress test No observ ation record ed. DONAVON [address], [place], [address], 12/29/2020 19:50:11 12/29/19 21 01/13/2021 US, obste tric, follo w-up No observ ation record ed. maribel [place] [address], [place], [address], 01/13/2021 21:47:49 01/01/2012/31/2020 non-s tress test No observ ation record ed. [email or web address], [place], [address], 12/31/2020 14:35:09 01/05/20 21 01/04/2021 non-s tress test No observ ation record ed. [email or web address], [place], [address], 01/04/2021 12:06:20 01/05/2001/13/2021 US, obste tric, bioph ysica l profi le + non-s tress test No observ ation record ed. maribel [place] [address], [place], [address], 01/13/2021 22:13:10 01/05/20 21 01/13/2021 US, obste tric, follo w-up No observ ation record ed. maribel [place] [address], [place], [address], 01/13/2021 21:53:15 01/05/20 21 01/13/2021 US, doppl er, umbil ical arter y veloc imetr y No observ ation record ed. layran [place] [address], [place], [address], 01/13/2021 22:31:59 01/05/20 21 US, obste tric No observ ation record ed. [email or web address] [address], [place], [address], 01/06/2021 14:41:44 01/08/20 21 01/07/2021 non-s tress test No observ ation record ed. [email or web address] [place] [address], [place], [address], 01/07/2021 12:54:10 Result Notes None recorded. Problems Name Problem SNOMED Code Status Onset Date Resolution Date Notes Provider Name and Address Organization Details Recorded Time Pregnanc y 14486582 Completed 201909/23/2020 Valery Beadr [facility] 11:13:16 Acute headache [id number] Completed Valery Beard [facility] 11:13:14 Finding of regulari ty of menstrua l cycle Completed 201809/23/2020 Irregula r menstrua tion, unspecif ied;Prac errol ID: [address] [facility] 10:27:01 Urinary tract infectio us disease 06508804 Completed 201909/23/2020 UTI;Aldair rded Elsewher e: No Locat ion: [facility]Tele medicine Source: EHR [employer] Technician jesse: N Practi ce ID: 0001 Carl[place] lable Time: 11:00:00 [facility] 10:27:35 Normal pregnanc y in multigra araceli [id number] Completed 201509/23/2020 Encounte r for suprvsn of normal pregnanc y, second trimeste r;Record ed Elsewher e: No Locat ion: [place] [facility] S ource: EHR [employer] Technician jesse: N Practi ce ID: 0001 Carlton lable Time: 03:15:00 PM Cori lopez, [facility] 1 10:27:13 Lochia finding Completed 201509/23/2020 Encounte r for routine postpart um follow-u p;Record ed Elsewher e: No Locat ion: [facility] S ource: EHR [employer] Technician jesse: N Practi ce ID: 0001 Carlton lable Time: 09:15:00 AM Cori lopez, [facility] 10:27:11 Screenin g for malignan t neoplasm of cervix Completed 201709/23/2020 Screenin g for malignan t neoplasm s of the cervix;R ecorded Elsewher e: No Locat ion: [facility] S ource: EHR [employer] Technician jesse: N Valdoti ce ID: 0001 Carlton lable Time: 11:00:00 AM Cori lopez, [facility] 10:27:27 Cyst of vulva [id number] Completed 201809/23/2020 Vulvar cyst;Rec orded Elsewher e: No Locat ion: [facility] S ource: EHR [employer] Technician jesse: N Practi ce ID: 0001 Carlton lable Time: 04:00:00 PM Cori lopez, [facility] 1 10:26:52 Pregnanc y, childbir th and puerperi um finding Completed 201509/23/2020 Encounte r for supervis ion of normal first pregnanc y, third trimeste r;Record ed Elsewher e: No [facility]at ion[facility] S ource: EHR [employer] Technician jesse: N Practi ce ID: 0001 [place] lable Time: 01:45:00 PM Cori lopez [facility] 10:27:23 Syphilis test finding [id number] Completed 201709/23/2020 Encntr screen for infectio ns w sexl mode of transmis s;Record ed Elsewher e: No Locat ion: [facility] S ource: EHR [employer] Technician jesse: N Practi ce ID: 0001 Carlton lable Time: 11:00:00 AM Cori lopez [facility] 10:27:31 Pregnanc y test negative [id number] Completed 201609/23/2020 Encounte r for pregnanc y test, result negative ;Recorde d Elsewher e: No Locat ion: [facility] S ource: EHR [employer] Technician jesse: N Practi ce ID: 0001 Carlton lable Time: 09:45:00 AM Cori lopez [facility] 10:27:19 Educatio n Completed 201509/23/2020 Encounte r for other general counseli ng and advice on contrace ption;Re corded Elsewher e: No Locat ion: [facility] S ource: E[employer] Technician jesse: N Practi ce ID: 0001 [place] lable Time: 09:15:00 AM Cori lopez [facility] 10:26:54 Infectio n screenin g Completed 201709/23/2020 Encounte r for screenin g for oth infec/pa rastc diseases ;Recorde d Elsewher e: No Locat ion: [facility] S ource: EHR [employer] Technician jesse: N Practi ce ID: 0001 Carl[place] lable Time: 11:00:00 AM Cori lopez [facility] 10:27:10 Acute vaginiti s [id number] Completed 201909/23/2020 Acute vaginiti s;Record ed Elsewher e: No Locat ion: [facility]-Tele medicine Source: EHR [employer] Technician jesse: N Practi ce ID: 0001 [place] lable Time: 11:00:00 AM Cori lopez, [facility] 1 10:26:49 Embryoni c cyst of cervix, vagina and external female genitali a Completed 201809/23/2020 Embryoni c vaginal cyst;Rec orded Elsewher e: No Locat ion: [facility] S ource: EHR [employer] Technician jesse: N Practi ce ID: 0001 [place] lable Time: 11:30:00 AM Cori lopez, [facility] 10:26:55 Gestatio n less than 9 weeks [id number] Completed 201509/23/2020 Less than 8 weeks gestatio n of pregnanc y;Record ed Elsewher e: No Locat ion: [facility] S ource: EHR [employer] Technician jesse: N Practi ce ID: 0001 [place] lable Time: 11:30:00 AM Cori lopez, [facility] 1 10:27:03 Pregnanc y detectio n examinat ion Completed 201509/23/2020 Encounte r for pregnanc y test, result positive ;Recorde d Elsewher e: No [facility]: EHR [employer] Technician jesse: N Practi ce ID: 0001 [place] lable Time: 03:30:00 PM Cori lopez, [facility] 1 10:27:17 Pregnanc y, childbir th and puerperi um finding Completed 201509/23/2020 Encounte r for supervis ion of normal first pregnanc y, first trimeste r;Record ed Elsewher e: No [facility] S ource: EHR [employer] Technician jesse: N Practi ce ID: 0001 Carlton lable Time: 01:30:00 PM Cori lopez [facility] 10:27:20 Gestatio n period, 24 weeks [id number] Completed 201509/23/2020 24 weeks gestatio n of pregnanc y;Record ed Elsewher e: No [facility] S ource: EHR [employer] Technician jesse: N Practi ce ID: 0001 [place] lable Time: 02:00:00 PM Cori lopez [facility] 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 10:27:30 Bleeding [id number] Completed 201809/23/2020 Abnormal uterine and vaginal bleeding , unspecif ied;Aldair rded Elsewher e: No Locat ion: [facility] S ource: EHR [employer] Technician jesse: N Practi ce ID: 0001 Carlton lable Time: 02:00:00 PM Cori lopez [facility] 10:27:00 Epidermo id cyst [id number] Completed 201809/23/2020 Epiderma l cyst;Rec orded Elsewher e: No Locat ion: [facility] S ource: EHR [employer] Technician jesse: N Practi ce ID: 0001 [place] lable Time: 04:00:00 PM Cori lopez [facility] 10:26:57 Pelvic and perineal pain 775282826 Completed 201709/23/2020 Pelvic and perineal pain;Rec orded Elsewher e: No Locat ion: [facility] S ource: EHR [employer] Technician jesse: N Valdoti ce ID: 0001 [place] lable Time: 11:00:00 AM Cori lopez, [facility] 1 10:27:14 Clinical finding Completed 201509/23/2020 Encounte r for surveill ance of injectab le contrace ptive;Re corded Elsewher e: No Locat ion: [place] [facility] S ource: EHR [employer] Technician jesse: N Valdoti ce ID: 0001 [place] lable Time: 03:30:00 PM Cori lopez, [facility] 1 10:26:50 Pregnanc y, childbir th and puerperi um finding Completed 201509/23/2020 Encounte r for supervis ion of normal first pregnanc y, second trimeste r;Record ed Elsewher e: No Locat ion: [facility] S ource: EHR [employer] Technician jesse: N Valdoti ce ID: 0001 [place] lable Time: 04:30:00 PM Cori lopez, [facility] 1 10:27:22 Uterine size for dates discrepa ncy Completed 201509/23/2020 Uterine size-mayra e discrepa ncy, first trimeste r;Record ed Elsewher e: No Locat ion: [facility] S ource: EHR [employer] Technician jesse: N Valdoti ce ID: 0001 Carl[place] lable Time: 11:30:00 AM Cori lopez, [facility] 1 10:27:38 Uterine size for dates discrepa ncy Completed 201509/23/2020 Uterine size-mayra e discrepa ncy, second trimeste r;Record ed Elsewher e: No Locat ion: [facility] S ource: EHR [employer] Technician jesse: N Valdoti ce ID: 0001 [place] lable Time: 02:00:00 PM Cori lopez, [facility] 10:27:40 False labor before 37 complete d weeks of gestatio n [id number] [id number] Completed 201509/23/2020 False labor before 37 complete d weeks of gest, second tri;Prac errol ID: 0001 Cori Griffith null, [facility] 10:26:58 Gestatio n period, 27 weeks 29891483 Completed 201509/23/2020 27 weeks gestatio n of pregnanc y;Practi ce ID: 0001 Cori Griffith null, [facility] 10:27:06 Term pregnanc y delivere d 71478732 Completed 201509/23/2020 Encounte r for full-ter m uncompli cated delivery ;Practic e ID: 0001 Cori Griffith null, [facility] 10:27:33 Single live [id number] Completed 201509/23/2020 Single live ;Pr actice ID: 0001 Cori Griffith null, [facility] 10:27:28 Gestatio n period, 39 weeks [id number] Completed 201509/23/2020 39 weeks gestatio n of pregnanc y;Practi ce ID: 0001 Cori Griffith null, [facility] 10:27:08 Pregnanc y 59751401 Completed 202001/20/2021 Valery Beard hl null, [facility] 11:13:16 Second trimeste r bleeding 696539911 Completed [facility] Valery Beard hl null, [facility] 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 [facility] on 10/27/20 u/s and appt Valery Beard hl null, [facility] 1 11:13:14 growth restrict ion [id number] Completed Level II 01/04 u/s only; 2x/wk NST, weekly doppler Valery Beard hl null, [facility] 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 1 11:13:14 Problem Notes None recorded. Procedures Surgical History Date Name Laterality Status Provider Name and Address Organization Details Recorded Time 06/11/2020 Date of Last Pap Smear completed Poppy Bronson [facility] 08/04/2020 10:58:46 Imaging Results Imaging Date Name Status LastModified by Organiz ation Details LastModified Time 11/30/2020 US, obstetric, follow-up completed [email or web address] [address] [facility], [place], [address], 12/02/2020 10:25:20 12/07/2020 US, obstetric, follow-up completed [email or web address] [facility] [address] [place] [address], [address], 12/13/2020 12:08:44 12/07/2020 US, obstetric, follow-up completed [facility] [place], [address], 12/07/2020 21:06:34 12/10/2020 non-stress test completed naman toure [address], [place], [address], 12/10/2020 12:10:03 12/20/2020 US, obstetric, biophysical profile + non-stress test completed jame Holcomb [address], [place], [address], 12/20/2020 17:43:34 12/20/2020 US, doppler, umbilical artery velocimetry completed [facility] [address], [place], [address], 12/20/2020 17:43:50 12/14/2020 US, obstetric, biophysical profile + non-stress test completed [email or web address] [address], [place], [address], 12/24/2020 15:12:09 12/14/2020 non-stress test completed emily Ram mesfin [address], [place], [address], 12/14/2020 13:52:16 12/07/2020 US, obstetric, follow-up completed [email or web address] [facility] [address] [facility] [place], [address], 12/15/2020 12:56:46 12/14/2020 US, obstetric, biophysical profile + non-stress test completed jame [address], [place], [address], 12/14/2020 17:32:01 12/28/2020 US, obstetric, biophysical profile + non-stress test completed [place] [address], [place], [address], 12/28/2020 16:06:33 12/28/2020 US, doppler, umbilical artery velocimetry completed [place] [address], [place], [address], 12/28/2020 16:06:22 12/21/2020 US, obstetric completed [address], [place], [address], 12/22/2020 18:44:20 12/21/2020 non-stress test completed [email or web address] [address], [place], [address], 12/21/2020 12:44:41 12/24/2020 non-stress test completed [email or web address] [address], [place], [address], 12/24/2020 12:02:00 12/28/2020 non-stress test completed [email or web address] [address], [place], [address], 12/28/2020 12:05:21 01/13/2021 US, obstetric, biophysical profile + non-stress test completed [facility] [address], [place], [address], 01/13/2021 22:12:14 01/13/2021 US, doppler, umbilical artery velocimetry completed [facility] [address], [place], [address], 01/13/2021 22:30:16 12/28/2020 US, obstetric, biophysical profile + non-stress test completed [facility] [address] [facility], [place], [address], 12/29/2020 19:50:11 01/13/2021 US, obstetric, follow-up completed [place] [address], [place], [address], 01/13/2021 21:47:49 12/31/2020 non-stress test completed [email or web address] [address], [place], [address], 12/31/2020 14:35:09 01/04/2021 non-stress test completed [email or web address] [address], [place], [address], 01/04/2021 12:06:20 01/13/2021 US, obstetric, biophysical profile + non-stress test completed [facility] [address], [place], [address], 01/13/2021 22:13:10 01/13/2021 US, obstetric, follow-up completed [facility] [address], [place], [address], 01/13/2021 21:53:15 01/13/2021 US, doppler, umbilical artery velocimetry completed [facility] [address], [place], [address], 01/13/2021 22:31:59 01/04/2021 US, obstetric completed [email or web address] [address], [place], [address], 01/06/2021 14:41:44 01/07/2021 non-stress test [email or web address], [place], [address], 01/07/2021 12:54:10 Procedure Notes None recorded. Medical Equipment None Reported. Allergies No known drug allergies Medications Name Sig Start Date Stop Date Status Note LastModified by Organization Details LastModified Time clindamyc in HCl 300 mg capsule TAKE 1 CAPSULE BY MOUTH EVERY 12 HOURS 09/23 completed Not Available Not Available Not Available fluconazo le 150 mg tablet TAKE 1 TABLET BY MOUTH FOR 1 DOSE 08/05 completed Not Available Not Available Not Available Keflex 500 mg capsule take 1 capsule by oral route every 12 hours 03/14 completed Prescrib ed Elsewher e: No Locat ion: [place] [facility] M odify By: britt maynard DateTime : 02/06/20 04:00:00 PM Not Available Not Available Not Available metronida zole 0.75 % (37.5 mg/5 gram) vaginal gel insert 1 applicat orful by vaginal route every day at bedtime 12/09 completed Prescrib ed Elsewher e: No Locat ion: [place] [facility] odify By: britt Encounash r DateTime : 03/25/20 19 11:30:00 AM Not Available Not Available Not Available doxycycli ne hyclate 50 mg capsule take 1 capsule by oral route every 12 hours 12/24 completed Prescrib ed Elsewher e: Yes Loca tion: [place] [facility] odify By: birtt Encounash r DateTime : 09/23/19 02:00:00 PM Not Available Not Available Not Available tramadol 50 mg tablet TAKE 1 TABLET BY MOUTH EVERY 6 HOURS 09/23 completed Not Available Not Available Not Available amoxicill in 500 mg tablet TAKE 1 TABLET BY MOUTH THREE TIMES A DAY UNTIL FINISHED 08/05 completed Not Available Not Available Not Available spironola ctone (bulk) 100% powder 12/24 completed Prescrib ed Elsewher e: Yes Loca tion: [place] [facility] odify By: britt Méndez r DateTime : 09/23/19 02:00:00 PM Not Available Not Available Not Available docusate sodium 100 mg capsule TAKE 1 CAPSULE BY MOUTH TWICE A DAY FOR CONSTIPA TION 12/21 completed Not Available Not Available Not Available Vitamin D2 1,250 mcg (50,000 unit) capsule take 1 capsule by oral route every week 05/15 completed Prescrib ed Elsewher e: No Locat ion: [place] [facility] odify By: britt Encounash r DateTime : 11/26/19 16 11:38:26 AM Not Available Not Available Not Available Depo-Prov era 150 mg/mL intramusc ular syringe inject 1 millilit er by intramus cular route every 3 months 05/15 completed Prescrib ed Elsewher e: No Locat ion: [place] [facility] odify By: britt Dev r DateTime : 06/28/20 16 09:15:00 AM Not Available Not Available Not Available nitrofura ntoin monohydra te/macroc rystals 100 mg capsule TAKE 1 CAPSULE BY MOUTH EVERY 12 HOURS WITH FOOD 08/05 completed Not Available Not Available Not Available Tylenol 12/21 completed Not Available Not Available Not Available active Not Available Not Avai lable Not Available butalbita l-acetami nophen-ca ffeine 50 mg-300 mg-40 mg capsule TAKE 1 CAPSULE BY MOUTH EVERY 4 HOURS 09/23 completed Not Available Not Available Not Available [employer]-PNV-DH A 28 mg iron-1 mg-200 mg capsule take 1 capsule by oral route every day 05/15 completed Prescrib morena Graham e: No Locat ion: [place] [facility] odify By: britt Hollyash r DateTime : 04/06/20 16 02:15:00 PM Not Available Not Available Not Available Vitals Date Recorded Body height Body mass index (BMI) Body weight Systolic blood pressure Diastolic blood pressure Provider Name and Address Organization Details Last Updated DateTime 01/04/2021 168.28 cm 24 kg/m2 86933.85 55 g 122 mm[Hg] 77 mm[Hg] Cori Griffith [facility] 12:48:26 Social History Question Answer Notes LastModified by Organizat ion Details LastModified Time Tobacco Smoking Status Never Smoker Lauren lopez [facility] 11/25/2020 11:53:54 Do You Have An Advance Directive? No Information not available 11/25/2020 What Is Your Level Of Alcohol Consumption? Occasional [email or web address] Information not available 02/25/2020 If You Are , What Was Your Level Of Alcohol Consumption Prior To ? Occasional Information not available 11/25/2020 Are You Blind Or Do You Have Difficulty Seeing? No [email or web address] Information not available 11/10/2020 What Is Your Level Of Caffeine Consumption? Occasional Information not available 11/25/2020 How Much Tobacco Do You Chew? None Information not available 11/25/2020 In The 14 Days Before Symptom Onset, Have You Had Close Contact With A Laboratory-confir med COVID-19 While That Case Was Ill? No [email or web address] Information not available 11/10/2020 In The 14 Days Before Symptom Onset, Have You Had Close Contact With A Person Who Is Under Investigation For COVID-19 While That Person Was Ill? No [email or web address] Information not available 11/10/2020 Have You Been To An Area Known To Be High Risk For COVID-19? No [email or web address] Information not available 11/10/2020 Are You Deaf Or Do You Have Serious Difficulty Hearing? No [email or web address] Information not available 11/10/2020 What Type Of Diet Are You Following? REGULAR [email or web address] Information not available 11/10/2020 Which Illicit Or Recreational Drugs Have You Used? None Information not available 11/25/2020 Do You Or Have You Ever Used E-cigarettes Or Vape? Never Used Electronic Cigarettes Information not available 11/25/2020 What Is The Highest Grade Or Level Of School You Have Completed Or The Highest Degree You Have Received? 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 No Information not available 11/25/2020 What Was The Date Of Your Most Recent Tobacco Screening? 12/10/2020 [email or web address] Information not available 12/10/2020 Have You Ever Been Counseled For Unhealthy Alcohol Use? No Information not available 11/25/2020 Do You Use Protection During Sex? No Information not available 11/25/2020 Do You Use Your Seat Belt Or Car Seat Routinely? Yes [email or web address] Information not available 11/10/2020 Do You Have Smoke And Carbon Monoxide Detectors In Your Home? Yes [email or web address] Information not available 11/10/2020 Do You Or Have You Ever Used Smokeless Tobacco? Never Used Smokeless Tobacco Information not available 11/25/2020 How Much Tobacco Do You Smoke? No [email or web address] Information not available 02/25/2020 Do You Feel Stressed (tense, Restless, Nervous, Or Anxious, Or Unable To Sleep At Night)? [id number] [email or web address] Information not available 11/10/2020 Do You Use Any Illicit Or Recreational Drugs? No [email or web address] Information not available 10/13/2020 Do You Use Sunscreen Routinely? No Information not available 11/25/2020 Has Tobacco Cessation Counseling Been Provided? No Information not available 11/25/2020 Have You Used IV Drugs? No Information not available 11/25/2020 Do You Or Have You Ever Used Any Other Forms Of Tobacco Or Nicotine? No Information not available 11/25/2020 Sex: Unknown Functional Status Question Answer Note LastModified by Organizat ion Details LastModified Time Are you able to walk? [email or web address] Information not available 11/10/2020 What is your exercise level? Occasional [email or web address] Information not available 02/25/2020 Mental Status None recorded. Family History Relationship Description Onset Age of this Age Resolved Age Notes LastModified by Organization Details LastModified Time Maternal Grandfather Diabetes mellitus [email or web address] Not available 02/24 14:54:39 Paternal Grandfather Diabetes mellitus [email or web address] Not available 02/24 14:54:39 Paternal Grandfather Heart disease [email or web address] Not available 02/24 14:54:58 Paternal Grandfather Hypertensive disorder [email or web address] Not available 02/24 14:55:10 Paternal Grandfather Disorder of cardiovascul ar system [email or web address] Not available 2020 11:47:41 Maternal Grandmother Diabetes mellitus [email or web address] Not available 02/24 14:54:39 Paternal Grandmother Diabetes mellitus [email or web address] Not available 02/24 14:54:39 Sister Cyst of ovary [email or web address] Not available 2020 11:47:41 Sister Polycystic ovary syndrome [email or web address] Not available 2020 11:47:41 Notes:Maternal aunt: Cancer, breast Maternal grandfather: Diabetes mellitus Maternal grandmother: Diabetes mellitus Paternal grandfather: Diabetes mellitus, Cardiovascular disease, Hypertension Paternal grandmother: Diabetes mellitus Sister: Ovarian cyst, Polycystic ovarian syndrome Medical History Condition Response Headaches Y Gynecological History Statement/Question Response Date of LMP 03/14/2020 Sexually Active? Y N STIs/STDs N Was last menstrual period normal N Date of Last Pap Smear 06/11/2020 Sexual Problems? N Current Control Method Age at First Child 21 LMP Approximate N Obstetrics History GPAL:G 2 P 2 0 0 2 Type Value Full Term 2 Living 2 Total 2 Past Encounters Encounter ID Performer Location Encounter Start Date Encounter Closed Date Diagnosis/Indication Diagnosis SNOMED-CT Code Diagnosis ICD10 Code Diagnosis Note [id number] Elen Jimenez [facility] [address] [place] [address] 02/25/2020 11:15:15 02/25/2020 13:11:05 Female infertility 0016839 N97.9 Irregular periods 358706 07 N92.6 [id number] Elen Jimenez [facility] [address] [place] [address] 05/14/2020 15:10:39 05/14/2020 15:41:31 Abnormal uterine bleeding 4387368518 9100 N93.9 +UPT plan to check HCG and progestero ne, f/u one week us and ob scrrening [id number] Elen Jimenez [facility] [address] [place] [address] 06/11/2020 10:06:45 06/14/2020 16:16:18 Amenorrhea 89565822 N91.2 Gynecologi c examination 91272271 Z01.419 [id number] [facility] [address] [place] [address] 06/11/2020 10:07:48 06/11/2020 11:55:38 [id number] Anjum Farias MD [facility] [address] [place] [address] 07/08/2020 11:11:21 07/08/2020 11:53:48 Headache 53260449 R51.9 Routine an tenatal care 994485089 Z34.81 screening 2437 24967 Z36.89 Z77.011 [id number] [facility] [address] [place] [address] 08/05/2020 10:52:29 08/06/2020 08:46:[id number] [facility] [address] [address] 08/05/2020 10:56:36 08/05/2020 11:54:22 Routine care 945846500 Z34.92 [id number] Elen Jimenez [facility] [address] [address] 08/18/2020 11:12:36 08/18/2020 12:15:57 [id number] [facility] [address] [address] 08/24/2020 17:23:01 08/25/2020 09:47:52 screening for malformation 837993779 Z36.3 [id number] Elen Jimenez [facility] [address] [address] 08/26/2020 10:45:17 08/26/2020 11:39:50 Routine care 653902335 Z34.92 [id number] [facility] [address] [address] 09/23/2020 10:15:06 09/23/2020 12:53:32 33602295 Z33.1 Routine an tenatal care 330760614 Z34.92 [id number] [facility] [address] [address] 09/28/2020 09:26:21 09/28/2020 10:27:06 Uterine size for dates discrepancy 580807138 O26.842 Z3A.24 [id number] [facility] [place] [address] [address] [place] [address] 10/13/2020 09:38:14 10/13/2020 15:12:55 Routine care 100992331 Z34.92 [id number] Elen Jimenez [facility] [address] 10/27/2020 11:46:56 10/27/2020 13:19:20 Routine care 404216828 Z34.92 [id number] Elen Jimenez [facility] [address] [address] 11/10/2020 15:44:19 11/10/2020 16:07:01 Routine care 537059589 Z34.92 [id number] Anjum Farias MD [facility] [address] [address] 11/25/2020 11:46:17 11/25/2020 12:34:30 Routine care 997891555 Z34.81 [id number] Glenis Norton [facility] [address] [address] 11/30/2020 11:02:19 11/30/2020 12:16:21 Small for gestational age fetus 205750894 O36.5930 Z3A.33 [id number] Valery Beard [facility] [address] [address] 11/30/2020 12:02:31 11/30/2020 12:53:19 growth restriction 49905530 O35.8XX9 [id number] Elne Jimenez [facility] [address],[place] [address] 12/10/2020 11:31:38 12/10/2020 12:38:36 Routine care 069778811 Z34.92 [id number] Valery Beard [facility] [address] [address] 12/10/2020 11:29:48 12/10/2020 12:11:19 growth restriction 26534082 O35.8XX9 [id number] Ai Chikis [facility] [address] [address] 12/14/2020 12:19:20 12/14/2020 12:41:43 Routine care 957238984 Z34.92 [id number] [facility] [address] [address] 12/14/2020 12:19:44 12/14/2020 14:52:11 Small for gestational age fetus 537893870 O36.5930 Z3A.35 [id number] [facility] [address],[place] [address] 12/14/2020 12:23:05 12/14/2020 14:53:18 Small for gestational age fetus 434571986 O36.5930 Z3A.35 [id number] Ai Waqargema [facility] [address],[place] [address] 12/21/2020 11:00:08 12/21/2020 12:04:31 Routine care 780289396 Z34.92 [id number] Valery Beard [facility] [address],[place] [address] 12/21/2020 10:58:52 12/21/2020 12:49:42 growth restriction 12088087 O35.8XX9 [id number] [facility] [address],[place] [address] 12/21/2020 10:59:30 12/21/2020 12:03:42 Small for gestational age fetus 328550024 O36.5930 O35.8XX0 Z3A.36 [id number] Valery Beard [facility] [address] [address] 12/24/2020 11:28:18 12/24/2020 12:08:08 growth restriction 88102777 O35.8XX9 [id number] Valery Beard [facility] [address] [address] 12/28/2020 11:28:31 12/28/2020 12:21:53 growth restriction 63451179 O35.8XX9 [id number] Lurdes Mi [facility] [address] [address] 12/28/2020 11:28:53 12/28/2020 12:33:00 Poor growth affecting management 866209275 O36.5930 Z3A.37 [id number] Anjum Farias MD [facility] [address] [address] 12/28/2020 11:29:09 12/28/2020 13:06:26 growth restriction 84848005 O35.8XX9 [id number] Valery Beard [facility] [address] [address] 12/31/2020 13:41:41 12/31/2020 14:35:20 growth restriction 74110021 O35.8XX9 [id number] Ai Chikis [facility] [address] [address] 01/04/2021 11:29:54 01/04/2021 13:05:28 Routine care 339342112 Z34.92 [id number] Valery Beard [facility] [address] [address] 01/04/2021 11:29:14 01/04/2021 12:07:48 growth restriction 53334354 O35.8XX9 [id number] Lurdes Mi [facility] [address] [address] 01/04/2021 11:29:36 01/04/2021 12:54:53 Poor growth affecting management 622609244 O36.5930 O35.8XX0 Z3A.38 [id number] Valery Beard [facility] [address] [address] 01/07/2021 12:20:46 01/07/2021 12:57:18 growth restriction 54469259 O35.8XX9 Health Concerns Section Related Observation LastModified by Organization Detai ls LastModified Time None Recorded Concern Status LastModified by Organization Details LastModified Time None Recorded Advance Directives Directive N: Payers Encounter Date Sequence Insurance Name Policy Number Policy Ly Covered Member ID Ly Member ID Guarantor Name 12/31/2020 1 [facility] [employer] [id number] Hussain Jiménez [id number] Joyce Jiménez 01/04/2021 1 [facility] [employer]EF[employer]NAGEMENT [id number] Hussain Jiménez [id number] Joyce Jiménez 01/04/2021 1 [facility] [employer] [id number] Hussain Jiménez [id number] Joyce Jiménez 01/04/2021 1 [facility] [employer] [id number] Hussain Jiménez [id number] Joyce Jiménez 01/07/2021 1 [facility] [employer] [id number] Hussain Jiménez [id number] Joyce Jiménez OBGyn Episode Ob Episode Information Episode Created Date Number of Fetuses Patient Bloodtype Patient rh Status Prepregnancy Weight lbs Domestic Partner Domestic Partner Phone Father Name Mica Washer Gluer Status 02/25/20 1 CLOSED Fetus Data First Name Last Name Admitted to NICU Weight (g) Sex Living Outcome Pediatric Complications Fetus ID Race Codes Race Delivery Type 3288.54 2 F Full Term 2150 Vaginal Delivery Anders Calculation Initial Anders Date Initial Exam Date Initial Exam Provider Initial Ultrasound Date Last Menstrual Period Date Ultra Sound Weeks Gestation 0 Eighteen To Twenty Week Anders Update Ultra Sound Date Fundal Height At Umbil Quickening Date Ultra Sound Latest Weeks Gestation Final Anders Confirmed By Final Anders Confirmed Date Final Anders Date Ultra Sound Latest Days Gestation 0 0 Menstrual History Last Menstrual Date Menses Monthly On Bcp Conception Prior Menses Frequency Hcg Plus Date Menarche Onset Age Delivery Information Delivery Date Delivery Type Labor Anesthesia Weeks Gestation Incision Type Labor Labor Length Hrs Delivered By Post Complications Tubal Sterilization Discharge Date Comments 6 39 Discharge Information Feeding Method Contraceptive Method Maternal HG B and HCT Levels Ob Episode Information Episode Created Date Number of Fetuses Patient Bloodtype Patient rh Status Prepregnancy Weight lbs Domestic Partner Domestic Partner Phone Father Name Mica Washer Gluer Status 07/08/20 1 O Positive 114 CLOSED Fetus Data First Name Last Name Admitted to NICU Weight (g) Sex Living Outcome Pediatric Complications Fetus ID Race Codes Race Delivery Type 3118.44 5 M true Full Term 5550 Vaginal Delivery Problems Problem Notes Declined CF/SMA Problem Name Start Date End Date Resolution Snomed Code Not e Acute headache 949907099 Second trimester bleeding 358265867 MFM Dilatation of renal pelvis 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 on umbilical cord found by MFM - [facility] on 10/14 @ 9. [facility] on 10/27/20 u/s and appt Anders Calculation Initial Anders Date Initial Exam Date Initial Exam Provider Initial Ultrasound Date Last Menstrual Period Date Ultra Sound Weeks Gestation 01/16/2021 07/08/2020 06/11/2020 8 Eighteen To Twenty Week Anders Update Ultra Sound Date Fundal Height At Umbil Quickening Date Ultra Sound Latest Weeks Gestation Final Anders Confirmed By Final Anders Confirmed Date Final Anders Date Ultra Sound Latest Days Gestation 0 [email or web address] 07/08/2020 01/17/20 21 0 Pre-myah Flowsheet Flowsheet Date 07/08/2020 Robles Score Blood Edema Fundus Height Fundus Units Glucose Ketones Leukocytes Nitrite Labor Signs Protein Cervic Dilation Cervic Effacement Cervic Station 12 Type Weight in lbs Pre/Post Dialysis Refused Weight 117.050049184388 BP Diastolic BP Location Tested BP Systolic BP Type 65 R arm 102 sitting Fetus Heart Rate Present A 156 Fetus Movement Comments this patient is a 25-year-ol d 2 para 1001 at 12 weeks gestation reports headache today. She is beginning routine care. She has history of vaginal . Flowsheet Date 08/05/2020 Robles Score Blood Edema Fundus Height Fundus Units Glucose Ketones Leukocytes Nitrite Labor Signs Protein Cervic Dilation Cervic Effacement Cervic Station Type Weight in lbs Pre/Post Dialysis Refused BP Diastolic BP Location Tested BP Systolic BP Type Fetus Heart Rate Present Fetus Movement Comments Flowsheet Date 08/05/2020 Robles Score Blood Edema Fundus Height Fundus Units Glucose Ketones Leukocytes Nitrite Labor Signs Protein Cervic Dilation Cervic Effacement Cervic Station neg trace trace Type Weight in lbs Pre/Post Dialysis Refused Weight 118.157822903640 BP Diastolic BP Location Tested BP Systolic BP Type 70 102 Fetus Heart Rate Present A 149 Fetus Movement A Yes Comments Headaches/migraines frequent ly. She does have them outside of but seems to be more frequent. She has tried fioricet and tylenol with little relief. She has not had any caffeine. Will try tylenol and caffeine with next headache. If this does not help we will schedule neuro consult. Pt is having a boy. Will check antibody screen and lead screen today. Pt has already had cf drawn with previous . Flowsheet Date 08/18/2020 Robles Score Blood Edema Fundus Height Fundus Units Glucose Ketones Leukocytes Nitrite Labor Signs Protein Cervic Dilation Cervic Effacement Cervic Station neg none trace Type Weight in lbs Pre/Post Dialysis Refused Weight 120.235286818703 BP Diastolic BP Location Tested BP Systolic BP Type 68 99 Fetus Heart Rate Present A 150 Fetus Movement Comments OB problem follow up from [facility] and delivery for spotting. patient states that spotting has stopped but is currently have cramping and abdominal and pelvic pain, was seen in LD, spotting stopped still occ cramping check vaginitis panel, precautions reviewed, f/u anatomy next week Flowsheet Date 08/24/2020 Robles Score Blood Edema Fundus Height Fundus Units Glucose Ketones Leukocytes Nitrite Labor Signs Protein Cervic Dilation Cervic Effacement Cervic Station Type Weight in lbs Pre/Post Dialysis Refused BP Diastolic BP Location Tested BP Systolic BP Type Fetus Heart Rate Present Fetus Movement Comments Flowsheet Date 08/26/2020 Robles Score Blood Edema Fundus Height Fundus Units Glucose Ketones Leukocytes Nitrite Labor Signs Protein Cervic Dilation Cervic Effacement Cervic Station neg none trace Type Weight in lbs Pre/Post Dialysis Refused Weight 123.181284253385 BP Diastolic BP Location Tested BP Systolic BP Type 69 101 Fetus Heart Rate Present A 156 Present Fetus Movement A Yes Comments patient states that having s ome cramping pain, discharge, and burning with urination, urine seen for culture, neg dip, increase hydration, c/o crusting of breast milk on right breast, green in color, no mass, sent for culture depending of result consider breast us, reviewed normal anatomy scan (male) Flowsheet Date 09/23/2020 Robles Score Blood Edema Fundus Height Fundus Units Glucose Ketones Leukocytes Nitrite Labor Signs Protein Cervic Dilation Cervic Effacement Cervic Station neg none 22 trace Type Weight in lbs Pre/Post Dialysis Refused Weight 128.990214224993 BP Diastolic BP Location Tested BP Systolic BP Type 62 130 Fetus Heart Rate Present A 143 Fetus Movement A Yes Comments Pt doing well. H/A significa ntly improved. No spotting since last episode. Pt considering SMA testing. Will call and check with insurance and let us know if she wants to go ahead with testing. Having a boy Carlos . Measuring less than dates. Growth u/s scheduled. Flowsheet Date 09/28/2020 Robles Score Blood Edema Fundus Height Fundus Units Glucose Ketones Leukocytes Nitrite Labor Signs Protein Cervic Dilation Cervic Effacement Cervic Station Type Weight in lbs Pre/Post Dialysis Refused BP Diastolic BP Location Tested BP Systolic BP Type Fetus Heart Rate Present Fetus Movement Comments Flowsheet Date 10/13/2020 Robles Score Blood Edema Fundus Height Fundus Units Glucose Ketones Leukocytes Nitrite Labor Signs Protein Cervic Dilation Cervic Effacement Cervic Station neg trace trace Type Weight in lbs Pre/Post Dialysis Refused Weight 132.489796450693 BP Diastolic BP Location Tested BP Systolic BP Type 70 105 Fetus Heart Rate Present A 141 Fetus Movement A Yes Comments patient states that having b ack pain, discharge and swelling, precautions reviewed, pt has f[facility] tomorrow ok for note to d/c work plan gct next visit Flowsheet Date 10/27/2020 Robles Score Blood Edema Fundus Height Fundus Units Glucose Ketones Leukocytes Nitrite Labor Signs Protein Cervic Dilation Cervic Effacement Cervic Station neg trace trace Type Weight in lbs Pre/Post Dialysis Refused Weight 133.199490710268 BP Diastolic BP Location Tested BP Systolic BP Type 72 112 Fetus Heart Rate Present A 145 Fetus Movement A Yes Comments patient states that having c ramping, discharge, spotted 2 weeks ago, and swelling, sees [facility] weeks precautions reviewed, off work now until delivery Flowsheet Date 11/10/2020 Robles Score Blood Edema Fundus Height Fundus Units Glucose Ketones Leukocytes Nitrite Labor Signs Protein Cervic Dilation Cervic Effacement Cervic Station neg trace 29 trace Type Weight in lbs Pre/Post Dialysis Refused Weight 137.468716561391 BP Diastolic BP Location Tested BP Systolic BP Type 73 110 Fetus Heart Rate Present A 155 Present Fetus Movement A Yes Comments patient states that having i ssues with constipations, discharge, and swelling, growth yesterday 12% per pt, no bleeding doing well f/u 2 weeks Flowsheet Date 11/25/2020 Robles Score Blood Edema Fundus Height Fundus Units Glucose Ketones Leukocytes Nitrite Labor Signs Protein Cervic Dilation Cervic Effacement Cervic Station 28 trace Type Weight in lbs Pre/Post Dialysis Refused Weight 139.917303842745 BP Diastolic BP Location Tested BP Systolic BP Type 65 R arm 98 sitting Fetus Heart Rate Present A 145 Fetus Movement A Yes Comments vulva examined. There patien t had concern about a projection of tissue at the posterior fourchette. It is part of her hymenal remnant that is may be swollen. It is normal. Patient form she has follow-up with MFM next week. Flowsheet Date 11/30/2020 Robles Score Blood Edema Fundus Height Fundus Units Glucose Ketones Leukocytes Nitrite Labor Signs Protein Cervic Dilation Cervic Effacement Cervic Station Type Weight in lbs Pre/Post Dialysis Refused BP Diastolic BP Location Tested BP Systolic BP Type Fetus Heart Rate Present Fetus Movement Comments Flowsheet Date 11/30/2020 Robles Score Blood Edema Fundus Height Fundus Units Glucose Ketones Leukocytes Nitrite Labor Signs Protein Cervic Dilation Cervic Effacement Cervic Station Type Weight in lbs Pre/Post Dialysis Refused BP Diastolic BP Location Tested BP Systolic BP Type Fetus Heart Rate Present Fetus Movement Comments Flowsheet Date 12/10/2020 Robles Score Blood Edema Fundus Height Fundus Units Glucose Ketones Leukocytes Nitrite Labor Signs Protein Cervic Dilation Cervic Effacement Cervic Station Type Weight in lbs Pre/Post Dialysis Refused BP Diastolic BP Location Tested BP Systolic BP Type Fetus Heart Rate Present Fetus Movement Comments Flowsheet Date 12/10/2020 Robles Score Blood Edema Fundus Height Fundus Units Glucose Ketones Leukocytes Nitrite Labor Signs Protein Cervic Dilation Cervic Effacement Cervic Station neg trace trace Type Weight in lbs Pre/Post Dialysis Refused Weight 142.133439557907 BP Diastolic BP Location Tested BP Systolic BP Type 73 110 Fetus Heart Rate Present Fetus Movement A Yes Comments PATIENT STATES THAT HAVING S OME DISCHARGE AND SWELLING, IUGR, doing well, NST reactive, precautions reviewed f/u next week Flowsheet Date 12/14/2020 Robles Score Blood Edema Fundus Height Fundus Units Glucose Ketones Leukocytes Nitrite Labor Signs Protein Cervic Dilation Cervic Effacement Cervic Station Type Weight in lbs Pre/Post Dialysis Refused BP Diastolic BP Location Tested BP Systolic BP Type Fetus Heart Rate Present Fetus Movement Comments Flowsheet Date 12/14/2020 Robles Score Blood Edema Fundus Height Fundus Units Glucose Ketones Leukocytes Nitrite Labor Signs Protein Cervic Dilation Cervic Effacement Cervic Station neg none 31 trace Type Weight in lbs Pre/Post Dialysis Refused Weight 141.994461865415 BP Diastolic BP Location Tested BP Systolic BP Type 69 103 Fetus Heart Rate Present Fetus Movement A Yes Comments Doing well. GBS collected d/ t growth restriction and possible early delivery. U/S and NST to follow. Flowsheet Date 12/14/2020 Robles Score Blood Edema Fundus Height Fundus Units Glucose Ketones Leukocytes Nitrite Labor Signs Protein Cervic Dilation Cervic Effacement Cervic Station Type Weight in lbs Pre/Post Dialysis Refused BP Diastolic BP Location Tested BP Systolic BP Type Fetus Heart Rate Present Fetus Movement Comments Flowsheet Date 12/21/2020 Robles Score Blood Edema Fundus Height Fundus Units Glucose Ketones Leukocytes Nitrite Labor Signs Protein Cervic Dilation Cervic Effacement Cervic Station Type Weight in lbs Pre/Post Dialysis Refused BP Diastolic BP Location Tested BP Systolic BP Type Fetus Heart Rate Present Fetus Movement Comments Flowsheet Date 12/21/2020 Robles Score Blood Edema Fundus Height Fundus Units Glucose Ketones Leukocytes Nitrite Labor Signs Protein Cervic Dilation Cervic Effacement Cervic Station Type Weight in lbs Pre/Post Dialysis Refused BP Diastolic BP Location Tested BP Systolic BP Type Fetus Heart Rate Present Fetus Movement Comments Flowsheet Date 12/21/2020 Robles Score Blood Edema Fundus Height Fundus Units Glucose Ketones Leukocytes Nitrite Labor Signs Protein Cervic Dilation Cervic Effacement Cervic Station none Type Weight in lbs Pre/Post Dialysis Refused Weight 144.554276573589 BP Diastolic BP Location Tested BP Systolic BP Type 70 103 Fetus Heart Rate Present Fetus Movement A Yes Comments Pt aware that peds needs to know about pyelectasis. Doing well. Labor plan discussed. Visit per Z. Due SNM. Flowsheet Date 12/24/2020 Robles Score Blood Edema Fundus Height Fundus Units Glucose Ketones Leukocytes Nitrite Labor Signs Protein Cervic Dilation Cervic Effacement Cervic Station Type Weight in lbs Pre/Post Dialysis Refused BP Diastolic BP Location Tested BP Systolic BP Type Fetus Heart Rate Present Fetus Movement Comments Flowsheet Date 12/28/2020 Robles Score Blood Edema Fundus Height Fundus Units Glucose Ketones Leukocytes Nitrite Labor Signs Protein Cervic Dilation Cervic Effacement Cervic Station Type Weight in lbs Pre/Post Dialysis Refused BP Diastolic BP Location Tested BP Systolic BP Type Fetus Heart Rate Present Fetus Movement Comments Flowsheet Date 12/28/2020 Robles Score Blood Edema Fundus Height Fundus Units Glucose Ketones Leukocytes Nitrite Labor Signs Protein Cervic Dilation Cervic Effacement Cervic Station Type Weight in lbs Pre/Post Dialysis Refused BP Diastolic BP Location Tested BP Systolic BP Type Fetus Heart Rate Present Fetus Movement Comments Flowsheet Date 12/28/2020 Robles Score Blood Edema Fundus Height Fundus Units Glucose Ketones Leukocytes Nitrite Labor Signs Protein Cervic Dilation Cervic Effacement Cervic Station 37 Type Weight in lbs Pre/Post Dialysis Refused Weight 146.450289352785 BP Diastolic BP Location Tested BP Systolic BP Type 71 R arm 124 sitting Fetus Heart Rate Present A 158 Fetus Movement Comments patient has discussed induct ion labor on January 11 with Elen, she was scheduled today. To expedite 1 more growth ultrasound. Flowsheet Date 12/31/2020 Robles Score Blood Edema Fundus Height Fundus Units Glucose Ketones Leukocytes Nitrite Labor Signs Protein Cervic Dilation Cervic Effacement Cervic Station Type Weight in lbs Pre/Post Dialysis Refused BP Diastolic BP Location Tested BP Systolic BP Type Fetus Heart Rate Present Fetus Movement Comments Flowsheet Date 01/04/2021 Robles Score Blood Edema Fundus Height Fundus Units Glucose Ketones Leukocytes Nitrite Labor Signs Protein Cervic Dilation Cervic Effacement Cervic Station Type Weight in lbs Pre/Post Dialysis Refused BP Diastolic BP Location Tested BP Systolic BP Type Fetus Heart Rate Present Fetus Movement Comments Flowsheet Date 01/04/2021 Robles Score Blood Edema Fundus Height Fundus Units Glucose Ketones Leukocytes Nitrite Labor Signs Protein Cervic Dilation Cervic Effacement Cervic Station Type Weight in lbs Pre/Post Dialysis Refused BP Diastolic BP Location Tested BP Systolic BP Type Fetus Heart Rate Present Fetus Movement Comments Flowsheet Date 01/04/2021 Robles Score Blood Edema Fundus Height Fundus Units Glucose Ketones Leukocytes Nitrite Labor Signs Protein Cervic Dilation Cervic Effacement Cervic Station none 37 trace 2cm 50% -2 Type Weight in lbs Pre/Post Dialysis Refused Weight 150.995550097309 BP Diastolic BP Location Tested BP Systolic BP Type 77 122 Fetus Heart Rate Present A 136 Fetus Movement A Yes Comments Doing well. Will await u/s r ecommendations. As of now will plan induction at 39 weeks which has already been scheduled. Occasional contractions over the last week. Labor precautions. Flowsheet Date 01/07/2021 Robles Score Blood Edema Fundus Height Fundus Units Glucose Ketones Leukocytes Nitrite Labor Signs Protein Cervic Dilation Cervic Effacement Cervic Station Type Weight in lbs Pre/Post Dialysis Refused BP Diastolic BP Location Tested BP Systolic BP Type Fetus Heart Rate Present Fetus Movement Comments Menstrual History Last Menstrual Date Menses Monthly On Bcp Conception Prior Menses Frequency Hcg Plus Date Menarche Onset Age Genetic Screening And Infection History Question Response Note Mental Retardation/Autism false Patient's Age Will Be 35 Years Or Older At Estim ated Date of Delivery false Thalassemia (Sudanese, Citizen Of [place], Mediterranean, Or Background): MCV < 80 false Neural Tube Defect (Meningomyelocele, Spina Bifi da, Or Anencephaly) false Congenital Heart Defect false Down Syndrome false Dustin-Sachs (eg, Alevism, Cajun, Filipino-Vance) f alse Stephenie Disease false Sickle Cell Disease Or Trait () false Hemophilia Or Other Blood Disorders false Muscular Dystrophy false Cystic Fibrosis false [place] Chorea false Intellectual Disability/Autism false If Yes, Was Person Tested For Fragile X? false Other Inherited Genetic Or Chromosomal Disorder false Maternal Metabolic Disorder (eg, Type 1 Diabetes , PKU) false Patient Or Baby's Father Had A Child With Defects Not Listed Above false Recurrent Loss, Or A Stillbirth false Medications (including Suppl ements, Vitamins, Herbs, OTC Drugs), Illicit/Recreational Drugs, Alcohol false If Yes, Agent(s) And Strength/Dosage false Any Other Genetic History false Live With Someone With TB Or Exposed To TB false Patient Or Partner Has History Of Genital Herpes false Rash Or Viral Illness Since Last Menstrual Perio d false History Of STD, Gonorrhea, Chlamydia, HPV, Syphi lis false Other Infection History false History of HIV false History of Hepatitis false Prior GBS-infected child false Hemoglobinopathy Or Carrier false Other Structural Defect false Recent Travel History Outside of Country false Delivery Information Delivery Date Delivery Type Labor Anesthesia Weeks Gestation Incision Type Labor Labor Length Hrs Delivered By Post Complications Tubal Sterilization Discharge Date Comments 1 Induce d Regional-Ep idural 39.2 false Elen JimenezM IUGR & Prolonged Rom Discharge Information Feeding Method Contraceptive Method Maternal HG B and HCT Levels Breast
--- OUTSIDE RECORDS SUMMARY | 2024-11-08 21:14 | XMS_ITS | Clinical Summary ---
Author Organization [facility] Address [address] [place] [address] Phone Care Team Providers Care Workforce Management Analyst Name Role Phone Unavailable Primary Care Provider Unavailabl e Social History Tobacco Use Types Packs/Day Years Used Date Smoking Tobacco: Never Assessed Comments Unknown Sex and Gender Information Value Date Recorded Sex Assigned at Not on file Legal Sex Female 7:20 PM CDT Gender Identity Not on file Sexual Orientation Not on file Plan of Treatment Health Maintenance Due Date Last Done Comments Hepatitis C Virus (HCV) Screening 1995 Pap Smear 01/09/2016 Influenza Immunization (#1) 2024 SARS-COV-2 Immunization (2023- season) 2024 Respiratory Syncytial Virus (RSV) Immunization (Adult) (1 - 1-dose 75+ series) 2070 Hepatitis B Immunization Completed 995, 1995, 1995 DTaP/Tdap/Td Immunization Discontinued 2020, 03/19/1996, 1995, Additional history exists TdaP Immunization Completed 01/10/2021 Meningococcal Immunization (ACWY) Aged Out No longer eligible based on patient's age to complete this topic Pneumococcal Immunization Combined Aged Out No longer eligible based on patient's age to complete this topic Rotavirus Immunization Aged Out No lo nger eligible based on patient's age to complete this topic
[2024-11-08 21:21] VITALS: O2SAT 99
[2024-11-08 23:45] VITALS: BP 132/74; PULSE 80; RESP 19; O2SAT 99
--- NOTE | 2024-11-09 00:40 | ECG_ITS ---
Test Date: 2024-11-09 01:27:56 Measurements Intervals [place] Rate: 75 P: 60 KS: 119 QRS: 81 QRSD: 94 T: 61 QT: 396 QTc: 445 Interpretive Statements SINUS RHYTHM WITH SINUS ARRHYTHMIA WITH SHORT KS INTERVAL INCOMPLETE RIGHT BUNDLE BRANCH BLOCK BASELINE ARTIFACT- I, II, AVR No previous ECG available for comparison Electronically Signed On 11-09-2024 07:19:22 LIQUOR STORE MANAGER by Joshua Rahman D.O.
--- OUTSIDE RECORDS SUMMARY | 2024-11-09 00:43 | XMS_ITS | Clinical Summary ---
Author Organization [facility] Address [address] [place] [address] Care Team Providers Care Cell Manager Name Role Phone Dino Cerda MD Primary Care Provider [phone] Source Comments [facility],non-owned Affiliates and Associated Physician Practices is amultiple site organization consisting of ambulatory clinics and hospital sitesin [place], [place], [place] and [place]. This disclosure is being madepursuant to the Care Everywhere program and may not contain all information available regarding this patient. Last updated 18.[facility] Allergies No known active allergies Medications * [...] Jiménez was screened for depression using the [place] Depression Scale (EPDS) at her [facility] initial evaluation on 10/14/2020. Her initial [...] from the original note were not included. [facility] PATIENT--PLEASE CALL [phone] (ex 2) IF TRIAGED OR ADMITTED Care Provider: Dr. Farias [facility] consultants involved: [facility]- Dr. Pascual Diagnosis: Amniotic Band (10/14 US: The band appears to attach to the cord but does not encircle th cord, nor does the cord appear to project through this band. The cord moves freely in this area as well) Planned surveillance: Initial [facility] 10/14/20. Follow-up at [facility] 10/27/20. Continue routine care with primary OB Released from [facility] 10/14/20 Delivery location: with primary OB at hospital of choice (planning [facility]) Delivery mode: Per usual OB indications Desired Delivery GA: No idication for delivery before 39 weeks at this time follow up: Normal care Detective Homicide Squad: Dr. 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 Care plan based on evaluation and is subject to change based on assessment. See Images or Cardiac under Chart Review for US/ ECHO/ MRI reports. Assessment & Plan (10/27/2020 4:19 PM PLATING OPERATOR): growth has reduced since last assessment, EFW: 10%. AC: 10%. umbilical doppler indices appropriate today. S/p visit with [facility]. Plan 1. Serial growth with [...] cord Assessment & Plan (10/07/2020 11:43 PM PLATING OPERATOR): Risk of growth restriction, umbilical cord accident and . growth and umbilical Doppler indices appropriate today. Currently in liliya-viable gestational window. Plan 1. Referral to Care [place] 1. Consideration for resection 2. Serial growth with umbilical Doppler Vaginal bleeding during 10/01/2020 01/11/2021 Overview (10/04/2020): Vaginitis panel: lactobacillus iners detected, treated with clindamycin per record. Blood type: O positive. Assessment & Plan (10/27/2020 3:41 PM PLATING OPERATOR): Cervical length screening completed and reassuring. Reports history of easy bruising. Last episode of spotting two weeks ago. RH positive. Complaints today of intermittent watery discharge, separate from her normal vaginal discharge. Reports occasional, non-patterned cramping. Plan 1. Labs previously requested: CBC, PT, PTT, INR, Fibrinogen, TSH with reflex fT4. Patient reports she went to [facility] and did not have orders, nursing confirmed orders are in [facility]. 2. Sent to L/D at [facility] for evaluation for rupture of membranes. Primary Manager Pacu's office alerted of patient's symptoms. 3. Reviewed SROM warnings and physiologic discharge of , discussed importance of obstetrical evaluation with symptoms of leakage of fluid. 4. labor warnings reviewed, at risk for PTD and PPROM. Assessment & Plan (10/07/2020 11:41 PM PLATING OPERATOR): Seems to be benefiting from work limitations. [...] 36.2 C (97.1 F) 11/09/2020 10:44 AM PLATING OPERATOR Respiratory Rate - - Oxygen Saturation - - Inhaled Oxygen Concentration - - Weight 59.9 kg (132 lb) 10/27/2020 1:54 PM PLATING OPERATOR Height 172.7 cm (5' 8 ) 10/06/2020 2:19 PM PLATING OPERATOR Body Mass Index 20.07 10/06/2020 2:19 PM PLATING OPERATOR Plan of Treatment Health Maintenance Due Date [...] age to complete this topic Care Teams Cell Manager Relationship Specialty Start Date End Date Dino Cerda MD [address] [place] [address] PCP - General 03/09/21
--- OUTSIDE RECORDS SUMMARY | 2024-11-09 00:43 | XMS_ITS | Referral Summary ---
Author Organization [facility] Address [address] [place] [address] Care Team Providers Care Trackwalker Name Role Phone Dino Cerda MD Primary Care Provider [phone] Source Comments [facility],non-owned Affiliates and Associated Physician Practices is amultiple site organization consisting of ambulatory clinics and hospital sitesin [place], [place], [place] and [place]. This disclosure is being madepursuant to the Care Everywhere program and may not contain all information available regarding this patient. Last updated 18.[facility] Allergies No known active allergies Medications * [...] Jiménez was screened for depression using the [place] Depression Scale (EPDS) at her [facility] initial evaluation on 10/14/2020. Her initial [...] from the original note were not included. [facility] PATIENT--PLEASE CALL [phone] (ex 2) IF TRIAGED OR ADMITTED Care Provider: Dr. Farias [facility] consultants involved: [facility]- Dr. Pascual Diagnosis: Amniotic Band (10/14 US: The band appears to attach to the cord but does not encircle th cord, nor does the cord appear to project through this band. The cord moves freely in this area as well) Planned surveillance: Initial [facility] 10/14/20. Follow-up at [facility] 10/27/20. Continue routine care with primary OB Released from [facility] 10/14/20 Delivery location: with primary OB at hospital of choice (planning [facility]) Delivery mode: Per usual OB indications Desired Delivery GA: No idication for delivery before 39 weeks at this time follow up: Normal care Core Inserter: Dr. 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 Care plan based on evaluation and is subject to change based on assessment. See Images or Cardiac under Chart Review for US/ ECHO/ MRI reports. Assessment & Plan (10/27/2020 4:19 PM WEB UI DEVELOPER): growth has reduced since last assessment, EFW: 10%. AC: 10%. umbilical doppler indices appropriate today. S/p visit with [facility]. Plan 1. Serial growth with umbilical Doppler, [...] cord Assessment & Plan (10/07/2020 11:43 PM WEB UI DEVELOPER): Risk of growth restriction, umbilical cord accident and . growth and umbilical Doppler indices appropriate today. Currently in liliya-viable gestational window. Plan 1. Referral to Care [place] 1. Consideration for resection 2. Serial growth with umbilical Doppler Vaginal bleeding during 10/01/2020 01/11/2021 Overview (10/04/2020): Vaginitis panel: lactobacillus iners detected, treated with clindamycin per record. Blood type: O positive. Assessment & Plan (10/27/2020 3:41 PM WEB UI DEVELOPER): Cervical length screening completed and reassuring. Reports history of easy bruising. Last episode of spotting two weeks ago. RH positive. Complaints today of intermittent watery discharge, separate from her normal vaginal discharge. Reports occasional, non-patterned cramping. Plan 1. Labs previously requested: CBC, PT, PTT, INR, Fibrinogen, TSH with reflex fT4. Patient reports she went to [facility] and did not have orders, nursing confirmed orders are in [facility]. 2. Sent to L/D at [facility] for evaluation for rupture of membranes. Primary Admission Nurse Coordinator's office alerted of patient's symptoms. 3. Reviewed SROM warnings and physiologic discharge of , discussed importance of obstetrical evaluation with symptoms of leakage of fluid. 4. labor warnings reviewed, at risk for PTD and PPROM. Assessment & Plan (10/07/2020 11:41 PM WEB UI DEVELOPER): Seems to be benefiting from work limitations. [...] 36.2 C (97.1 F) 11/09/2020 10:44 AM WEB UI DEVELOPER Respiratory Rate - - Oxygen Saturation - - Inhaled Oxygen Concentration - - Weight 59.9 kg (132 lb) 10/27/2020 1:54 PM WEB UI DEVELOPER Height 172.7 cm (5' 8 ) 10/06/2020 2:19 PM WEB UI DEVELOPER Body Mass Index 20.07 10/06/2020 2:19 PM WEB UI DEVELOPER Plan of Treatment Not on file Care Teams Trackwalker Relationship Specialty [place] [address] [place] [address] [address] [place] [address] PCP - General 03/09/21
--- OUTSIDE RECORDS SUMMARY | 2024-11-09 00:43 | XMS_ITS | Patient Health Summary ---
Author Organization [facility] Address [address] [place] [address] Care Team Providers Care Silk Screen Painter Name Role Phone Dino Cerda MD Primary Care Provider [phone] Note from [facility],non-owned Affiliates and Associated Physician Practices is amultiple site organization consisting of ambulatory clinics and hospital sitesin [place] and [place]. This disclosure is being madepursuant to the Care Everywhere program and may not contain all information available regarding this patient. Last updated 18.[facility] Allergies No known active allergies Medications * [...] 36.2 C (97.1 F) 11/09/2020 10:44 AM BROKE WORKER Respiratory Rate - - Oxygen Saturation - - Inhaled Oxygen Concentration - - Weight 59.9 kg (132 lb) 10/27/2020 1:54 PM BROKE WORKER Height 172.7 cm (5' 8 ) 10/06/2020 2:19 PM BROKE WORKER Body Mass Index 20.07 10/06/2020 2:19 PM BROKE WORKER Procedures * SONOGRAM - COMPLETE(Performed 12/07/2020) Performed [...] PHONE: FAX: Shelly. Name: JOYCE JIMÉNEZ. No: [id number] Study Date: 12/07/2020 2:08pm , Age: 04 1995, 25 Pregnancies: 2, Para 1 Height: 68 in Weight: 112 lb LMP: Unknown GA by Base: 34w2d DINORA: 01/16/2021 GA by US: 34w0d DINORA: 01/18/2021 GA Selected: 34w2d (From [facility]) DINORA: 01/16/2021 Referring MD: Anjum Farias MD Shipyard Supervisor: Linda Johansen RDMS CPT4: [id number] BMI: 17.03 Hist/Ind: Suspected amniotic band Underweight pregravid BMI MEASUREMENTS & AGE GROWTH EVALUATION Measurement GA Range Srce %for GA Ratios ----- ---- ------- BPD 8.6 cm 34w4d ([id number]) Hadl BPD 55% FL/BPD 0.71 (0.71 - 0.87) HC 32.2 cm 36w2d (85z1y-85v1p) Hadl HC 67% FL/AC 0.21 (0.20 - 0.24) AC 29.4 cm 33w3d (95t1g-22n3t) Hadl AC 27% HC/AC 1.09 (0.94 - 1.13) FL 6.1 cm 31w5d (43n7z-02l2i) Hadl FL 1% CI 0.73 (0.70 - 0.86) HL 5.3 cm 30w6d (55x0h-32o8v) Julio C HL <05 GA for sonogram 34w0d (45h9h-93r2e) Weight Estimate: based on (BPD,HC,AC,FL) Avg Weight: [...] Signature> 12/07/2020 04:35pm R Bob Farias MD [facility] ORDERABLES Care Teams Silk Screen Painter Relationship Specialty Start Date End Date Dino Cerda MD [address] [place] [address] PCP - General 03/09/21
--- OUTSIDE RECORDS SUMMARY | 2024-11-09 00:43 | XMS_ITS | Clinical Summary ---
Author Organization [facility] Address [address] [place] [address] Phone Care Team Providers Care Bit Grinder Name Role Phone Unavailable Primary Care Provider [...]
[2024-11-09 01:10] LABS: Basophils Percent Auto 0.3 % (0.2-1.2); Eosinophils Absolute Auto 0.1 K/mm3 (0-0.3); Eosinophils Percent Auto 1.4 % (0-4.4); Hematocrit 39.5 % (37.0-47.0); Hemoglobin 13.3 g/dL (12.0-15.0); Immature Granulocyte Absolute 0.03 K/mm3 (0.00-0.031); Immature Granulocyte Percent A 0.3 % (0-0.5); Lymphocytes Percent Auto 25.9 % (18.3-44.2); Mean Corpuscular HGB Conc 33.7 g/dl (32-36); Mean Corpuscular Hemoglobin 30.6 pg (26-34); Mean Corpuscular Volume 90.8 fl (80-100); Mean Platelet Volume 10.4 fl (7.4-10.4); Neutrophils Absolute Auto 6.2 K/mm3 (1.3-6.7); Neutrophils Percent Auto 62.1 % (45.5-73.1); Platelet Count Result 336 k/mm3 (150-375); Red Blood Count 4.35 M/mm3 (4.2-5.4); Red Cell Distribution Width 12.9 % (11.5-14.5); White Blood Count 10.1 K/mm3 (4.5-10.0)
[2024-11-09 01:28] LABS: Alanine Aminotransferase 17 U/L (6-35); Albumin Level 4.2 g/dL (3.5-5.1); Alkaline Phosphatase 79 U/L (38-126); Anion Gap 12 mmol/L (4-12); Aspartate Amino Transferase 20 U/L (14-36); Bilirubin,Total 0.4 mg/dL (0.2-1.3); Blood Urea Nitrogen 10 mg/dL (7-17); Calcium 9.2 mg/dL (8.4-10.2); Carbon Dioxide 29 mmol/L (22-30); Chloride 99 mmol/L (98-107); Estimated CRCL calculation 116 ml/min; Estimated Glomerular Filt Rate > 60; Glucose 107 mg/dL (65-110); Magnesium 1.7 mg/dL (1.6-2.3); Potassium 3.3 mmol/L (3.4-5.0); Sodium 140 mmol/L (137-145)
--- NOTE | 2024-11-09 01:33 | ED_ITS ---
HPI - URI/Sore Throat General Chief Complaint: Upper Respiratory Infection Stated Complaint: SHORTNESS OF BREATH/RIGHT ARM NUMBNESS Time Seen by Provider: 11/09/24 00:22 Source: patient Mode of arrival: ambulatory Limitations: no limitations History of Present Illness HPI Narrative: Patient is a 29-year-old female presents the ED with report of upper respiratory symptoms. Patient reports she has been sick for the last 1 week with cough, congestion, shortness of breath. Was seen at an urgent care yesterday and tested negative for COVID, influenza, RSV. Was prescribed prednisone. States she took 1 dose of this last night and states she had an adverse reaction. [place] insomnia, diaphoretic, racing heart palpitations, anxious. The symptoms have since resolved, but she felt shortness of breath was getting worse, which prompted her presentation. Patient also reports having a tingling sensation in her right arm. Particularly from her R elbow down her forearm laterally and into her R 3rd-5th digit. States this has occurred intermittently in the past when sleeping on her arm wrong. Today it has been ongoing for several hours. Related Data Home Medications ?Medication ?Instructions ?Recorded ?Confirmed ?Last Taken ?Type vit no.95-ferrous 1 tablet PO DAILY 08/14/20 12/22/20 01/11/21 05:00 History fumarate 28 mg-folic acid 800 mcg tablet () Allergies Allergy/AdvReac Type Severity Reaction Status Date / Time No Known Allergies Allergy Verified 12/22/20 13:30 Review of Systems 2 Review of Systems: All systems reviewed & are unremarkable except as noted in HPI. All systems reviewed & are unremarkable except as noted in HPI and below [facility] Family History Family History Father Acute myocardial infarction Heart disease Hypertension Social History Social History Smoking status: Never smoker Substance use: never Spiritual care concerns: No Exam 2 Narrative: GENERAL: Well appearing, thin, non-toxic, in no acute distress. HEAD: Normocephalic, atraumatic. RESPIRATORY: Airway patent, respirations nonlabored. Clear to auscultation bilaterally, no rales, rhonchi, wheezing. No significant focal lung sounds. Nasal quality to voice. Occasional coughing. CARDIOVASCULAR: Regular rate and rhythm without murmurs, rubs, or gallops. Radial pulses strong and easily palpable. MUSCULOSKELETAL: Moves all extremities. No gross deformities. Sharp and dull sensation is intact throughout right upper extremity. Capillary refill intact throughout fingers. Full range of motion of extremity. 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 No weakness noted. SKIN: Warm, dry, normal color. NEURO: A&O X3. Speech clear. Cranial nerves II-XII grossly intact. Steady gait. No ataxic movements. No focal deficits. PSYCHIATRIC: Appropriate mood and affect. Normal interaction. Course Vital Signs Vital signs: Vital Signs Temperature 98.0 F 11/08/24 21:14 Pulse Rate 83 11/08/24 21:14 Respiratory Rate 17 11/08/24 21:14 Blood Pressure 137/76 11/08/24 21:14 Pulse Oximetry 100 11/08/24 21:14 Oxygen Delivery Room Air 11/08/24 21:14 Temperature 98.0 F 11/08/24 21:14 Pulse Rate 76 11/09/24 02:09 Respiratory Rate 14 11/09/24 02:09 Blood Pressure 129/79 11/09/24 02:09 Pulse Oximetry 100 11/09/24 02:09 Oxygen Delivery Room Air 11/08/24 23:36 MDM - URI/Sore Throat MDM Narrative Medical decision making narrative: Patient presented to ED with shortness of breath, recent URI, also reporting paresthesias throughout right arm. Vital signs stable upon arrival. Patient in no acute distress. Afebrile. Oxygen stable on room air. EKG without concerning ST changes. Laboratory studies are otherwise fairly unremarkable. Minimal leukocytosis of 10.1. Patient has been on steroids. Potassium 3.3. Replaced orally. Mag also borderline 1.7, given oral replacement. Chest x-ray interpreted by myself as without acute focal findings. No evidence of focal consolidation. Discussed likelihood of viral URI, continued management of such. Advised symptoms should resolve on their own over the next couple of weeks. Advised to discontinue prednisone as she had adverse reaction. I did offer to prescribe Medrol Dosepak as patient has tolerated this in the past, however she politely declined. Discussed [id number] therapies to continue to use. Will prescribe inhaler. Patient is PERC negative. No evidence of DVT on exam. Low suspicion for PE. Paresthesias of right arm seem most consistent with cubital tunnel syndrome. Present in ulnar nerve distribution. There is no neurologic abnormalities noted on exam. No strength discrepancies. Will refer to neurology/Orthopedics for further evaluation. Discussed supportive therapy at home, recommended bracing arm or wrapping with towel at night to avoid persistent function, cushion whenever leaning on elbows. Offered MARTI bandage, however patient politely declined. Feel patient is safe for discharge home at this time. Recommended follow-up with PCP for further evaluation. Patient given strict return precautions should paresthesias or URI symptoms continue or worsen. She voiced understanding and feels comfortable discharge home. Discharged in stable condition. Vital signs stable at time of D/C. Medical Records Attestation: I reviewed the patient's medical records. Lab Data Attestation: I reviewed the patient's lab results. 11/09/24 01:04 11/09/24 01:04 Labs: Lab Results 11/09/24 Range/Units 01:04 WBC 10.1 H (4.5-10.0) K/mm3 RBC 4.35 (4.2-5.4) M/mm3 Hgb 13.3 (12.0-15.0) g/dL Hct 39.5 (37.0-47.0) % MCV 90.8 (80-100) fl MCH 30.6 (26-34) pg MCHC 33.7 (32-36) g/dl RDW 12.9 (11.5-14.5) % Plt Count 336 D (150-375) k/mm3 MPV 10.4 (7.4-10.4) fl Immature Gran % (Auto) 0.3 (0-0.5) % Neut % (Auto) 62.1 (45.5-73.1) % Lymph % (Auto) 25.9 (18.3-44.2) % [place] % (Auto) 10.0 H (2.6-8.5) % Eos % (Auto) 1.4 (0-4.4) % Baso % (Auto) 0.3 (0.2-1.2) % Lymph # (Auto) 2.60 (0.9-3.2) K/mm3 [place] # (Auto) 1.0 H (0.1-0.6) K/mm3 Eos # (Auto) 0.1 (0-0.3) K/mm3 Baso # (Auto) 0.0 (0.0-0.1) K/mm3 Abs Immat Gran (auto) 0.03 (0.00-0.031) K/mm3 Absolute Neuts (auto) 6.2 (1.3-6.7) K/mm3 Absolute Nucleated RBC 0.000 (0.0-0.012) K/mm3 Nucleated RBC % 0.0 (0.0-0.2) % Sodium 140 (137-145) mmol/L Potassium 3.3 L (3.4-5.0) mmol/L Chloride 99 (98-107) mmol/L Carbon Dioxide 29 (22-30) mmol/L Anion Gap 12 (4-12) mmol/L BUN 10 (7-17) mg/dL Creatinine 0.59 L (0.7-1.0) mg/dL Estim Creat Clear Calc 116 ml/min Estimated GFR > 60 (59 - ) Glucose 107 (65-110) mg/dL Calcium 9.2 (8.4-10.2) mg/dL Magnesium 1.7 (1.6-2.3) mg/dL Total Bilirubin 0.4 (0.2-1.3) mg/dL AST 20 (14-36) U/L ALT 17 (6-35) U/L Alkaline Phosphatase 79 (38-126) U/L Total Protein 8.0 (6.3-8.2) g/dL Albumin 4.2 (3.5-5.1) g/dL Imaging Data Attestation: I personally reviewed and interpreted this imaging study as follows: My impression: CXR: No acute cardiopulmonary disease. ECG Data EKG #1: Attestation: I personally reviewed and interpreted this ECG as follows: ECG completion date: 11/09/24 ECG completion time: 01:27 EKG Interpretation: normal rate (75), sinus rhythm (with sinus arrhythmia, short CO) and no ST changes Discharge Plan Discharge Clinical Impression: Cubital tunnel syndrome on right Upper respiratory infection Qualifiers: URI type: unspecified URI Qualified Code(s): J06.9 - Acute upper respiratory infection, unspecified Patient Disposition: Home, Self-Care Condition: Stable Instructions: Antibiotic Form, Carpal Tunnel Syndrome (DC), Paresthesia (ED), Viral Syndrome (ED), Cold Symptoms (ED) Additional Instructions: Stay well-hydrated at home. Recommend electrolyte rich fluids, Gatorade, Pedialyte, body armor. Utilize Tessalon Perles as needed for cough. Utilize inhaler as needed for shortness of breath. Continue [id number] cough and cold medicines for symptom relief, Delsym, Mucinex, DayQuil, NyQuil, Sudafed, Robitussin, TheraFlu. Follow with primary care doctor for further evaluation if needed. Return to the ED if you experience worsening or severe difficulty breathing, chest pain, worsening or severe numbness or tingling in arm, unable to keep down food or drink, severe pain, persistent fevers, or any other symptoms of concern. Your arm tingling symptoms seem most consistent with cubital tunnel syndrome. Recommend wrapping arm at night to avoid persistent flexion. Recommend cushioning to elbow/avoiding prolonged leaning or pressure on elbow. Follow-up with neurology/Orthopedics for further evaluation if needed. Patient Language: [place] Island[place] Prescriptions: New albuterol sulfate 90 mcg/actuation HFA aerosol inhaler 2 puff inhalation QID PRN (Reason: shortness of breath or wheezing) Qty: 6.7 0RF benzonatate 200 mg capsule 200 mg PO TID PRN (Reason: cough) Qty: 15 0RF No Action PNV cmb#95-ferrous fumarate-FA [] 28 mg iron- 800 mcg Tablet 1 tablet PO DAILY Follow-up/Referrals: Piotr Nieves MD [Physician] - (ORTHOPEDICS) Cassandra Phillips MD [Physician] - (NEUROLOGY) UNKNOWN,DOCTOR [Primary Care Provider] - Time of Disposition: 01:55
[2024-11-09] MEDS: POTASSIUM CHLORIDE 20 MEQ ER TABLET PO (01:42)
[2024-11-09] MEDS: MAGNESIUM OXIDE 400 MG TABLET PO (01:42)
[2024-11-09 02:08] VITALS: BP 129/79; PULSE 76; RESP 14; O2SAT 100
[2024-11-09 02:09] VITALS: BP 129/79; PULSE 76; RESP 14; O2SAT 100
== END 2024-11-09 02:11 | disposition home or self-care (01) ==
PROVIDERS: Emergency Provider Physician Assistant
DX: J06.9 Acute upper respiratory infection, unspecified (principal); G56.21 Lesion of ulnar nerve, right upper limb; I45.10 Unspecified right bundle-branch block
CPT/HCPCS: 36415; 71046; 80053; 83735; 85025; 93005; 99283; A9270